=== PATIENT | female | born 1980 | race Caucasian/White ===

== ENCOUNTER 2020-06-06 14:18 | Outpatient (CLI) | payer BC, SELFPAY ==
--- NOTE | ~2020-06-06 | XR_ITS ---
EXAMINATION: XR chest 2V EXAM DATE: 06/06/2020 14:30 INDICATION: R05 - Cough TECHNIQUE: Frontal and lateral projections of the chest obtained and reviewed. Comparison is made to prior examination from 07/13/2018. FINDINGS: The lungs are clear. There are no pleural effusions. The cardiomediastinal silhouette is within normal limits. There is no pneumothorax suspected. The bones and soft tissues are unremarkab le. IMPRESSION: No acute cardiopulmonary findings. Reviewed, dictated and finalized at location A. TRAY OPERATOR
== END 2020-06-06 14:19 | disposition home or self-care (01) ==
LOC: ANHIMG 14:22
PROVIDERS: Family Provider Family Medicine Adolescent Medicine; PCP Internal Medicine; Visit Provider Nurse Practitioner
DX: R05 Cough (principal)
CPT/HCPCS: 71046

== ENCOUNTER 2020-06-10 14:44 | Outpatient (CLI) | payer BC, SELFPAY ==
--- NOTE | ~2020-06-10 | MM_ITS ---
EXAMINATION: MM screening [facility] BI w geeta HISTORY: Screening TECHNIQUE: Craniocaudal and mediolateral oblique 3-D tomosynthesis images were obtained and synthetic 2-D images were generated. CAD analysis was submitted and interpreted. COMPARISON: 07/20/2018 BREAST PARENCHYMAL COMPOSITION: There are scattered areas of fibroglandular density. FINDINGS: There is a focal asymmetry medial aspect of the right breast on CC view. The left breast is stable without evidence for malignancy. IMPRESSION: 1. Focal asymmetry medial aspect of the right breast on CC view. 2. Additional mammographic views and possible breast ultrasound are recommended. BI-RADS Category 0: Incomplete: Needs additional imaging evaluation. Reviewed, dictated and finalized at location A. L INSTALLER IMPRESSION: 1. Focal asymmetry medial aspect of the right breast on CC view. 2. Additional mammographic views and possible breast ultrasound are recommended . BI-RADS Category 0: Incomplete: Needs additional imaging evaluation.
== END 2020-06-10 14:45 | disposition home or self-care (01) ==
LOC: ANHIMG 14:47
PROVIDERS: Family Provider Family Medicine Adolescent Medicine; PCP Internal Medicine; Visit Provider Nurse Practitioner
DX: Z12.31 Encounter for screening mammogram for malignant neoplasm of breast (principal); R92.8 Other abnormal and inconclusive findings on diagnostic imaging of breast
CPT/HCPCS: 77063; 77067

== ENCOUNTER → 2020-06-19 09:16 | Outpatient (CLI) | payer BC, SELFPAY ==
--- NOTE | ~2020-06-19 | MMUS_ITS ---
EXAMINATION: MM diagnostic mammo unilat RT, US breast RT limited HISTORY: Right breast asymmetry on screening TECHNIQUE: Additional 3-D tomosynthesis images of the right breast were performed and synthetic 2-D i mages were generated. CAD analysis was submitted and interpreted. High resolution limited right breas t ultrasound was performed. COMPARISON: 06/10/2020, 07/20/2018 FINDINGS: MAMMOGRAPHIC FINDINGS: There is a persistent asymmetry in the middle/posterior third of the central, slightly inner breast 7 cm from the nipple. No suspicious calcification or architectural distortion are identified. ULTRASOUND: There is a 3 mm cyst at the 2:00 location 6 cm from the nipple. A 4 mm x 2 mm oval, circumscribed, pa rallel, hypoechoic mass with posterior acoustic enhancement and no internal vascularity is seen at th e 3:00 location 5 cm from the nipple. IMPRESSION: 1. Probably benign right breast findings. 2. Recommend 6 month follow-up right diagnostic mammogram and ultrasound. BI-RADS category 3, probably benign findings. Reviewed, dictated and finalized at location A. GER CCU IMPRESSION: 1. Probably benign right breast findings. 2. Recommend 6 month follow-up right diagnostic mammogram and ultrasound. BI-RADS category 3, probably benign findings.
== END ==
PROVIDERS: PCP Internal Medicine; Visit Provider Nurse Practitioner
DX: R92.8 Other abnormal and inconclusive findings on diagnostic imaging of breast (principal)
CPT/HCPCS: 76642; 77065

== ENCOUNTER → 2020-07-05 07:38 | Outpatient (CLI) | payer BC, SELFPAY ==
--- NOTE | ~2020-07-05 | US_ITS ---
US right upper quadrant INDICATION: Elevation of liver enzymes PROCEDURE: Realtime right upper abdominal ultrasound. COMPARISON: Comparison to multiple prior studies sequentially, with oldest reviewed study dated 02/14. FINDINGS: The pancreas is normal without focal mass or pancreatic ductal dilation. Liver echotexture is increased, consistent with fatty infiltration. There is normal directional flow in the portal ve in. The gallbladder is normal without stones, gallbladder wall thickening or pericholecystic fluid. Comm on bile duct measures 3 mm. No sonographic Walter's sign. IMPRESSION: 1: Hepatic steatosis. Reviewed, dictated and finalized at location A. GER PROPERTY IMPRESSION: 1: Hepatic steatosis.
== END ==
PROVIDERS: PCP Internal Medicine; Visit Provider Nurse Practitioner
DX: R74.01 Elevation of levels of liver transaminase levels (principal); K76.0 Fatty (change of) liver, not elsewhere classified
CPT/HCPCS: 76705

== ENCOUNTER → 2021-01-24 07:51 | Outpatient (CLI) | payer BC, SELFPAY ==
--- NOTE | ~2021-01-24 | MMUS_ITS ---
EXAMINATION: MM diagnostic coral RT w geeta, US breast RT limited HISTORY: Six-month follow-up TECHNIQUE: ML, MLO and craniocaudal full field and spot 3-D tomosynthesis images of the right breast were performed and synthetic 2-D images were generated. Rolled medial and lateral lateral craniocauda l views. CAD analysis was submitted and interpreted. High resolution repeat limited right breast ultr asound was performed. COMPARISON: 06/19/2020 diagnostic right mammogram and limited right breast ultrasound 06/10/2020 bilateral digital screening mammogram 07/20/2018 bilateral digital screening BREAST PARENCHYMAL COMPOSITION: There are scattered areas of fibroglandular density. FINDINGS: MAMMOGRAPHIC FINDINGS: No reproducible suspicious mass or architectural distortion is detected. No malignant calcification, skin thickening or retraction. ULTRASOUND: The 3 mm cyst at 2:00 6 cm from the nipple and 4 x 2 mm hypoechoic mass at 3:00 5 cm from the nipple noted on 06/19/2020 Limited right breast ultrasound are no longer evident. IMPRESSION: 1. No mammographic evidence of malignancy 2. Routine mammographic screening is recommended. BI-RADS Category 1: Negative Reviewed, dictated and finalized at location A. IMPRESSION: 1. No mammographic evidence of malignancy 2. Routine mammographic screening is recommended. BI-RADS Category 1: Negative
== END ==
PROVIDERS: PCP Internal Medicine; Visit Provider Nurse Practitioner
DX: R92.8 Other abnormal and inconclusive findings on diagnostic imaging of breast (principal)
CPT/HCPCS: 76642; 77061; 77065; G0279

== ENCOUNTER → 2021-05-14 12:01 | Outpatient (CLI) | payer BC, SELFPAY ==
--- NOTE | ~2021-05-14 | XR_ITS ---
EXAMINATION: XR hip BI wo pelvis, XR lumbar spine 2-3V, XR sacroiliac joints min 3V DATE: 05/14/2021 13:09 INDICATION: Inflammatory polyarthropathy. Rheumatoid arthritis with intermittent joint pain. TECHNIQUE: 1. Supine AP, lateral and coned-down lateral lumbosacral views of the lumbar spine were obtained. 2. AP and left and right oblique views of the sacroiliac joints were obtained. 3. Anteroposterior and frog-leg lateral views of the right hip and anteroposterior and frog-leg later al views of the left hip were obtained. COMPARISON: None. FINDINGS: Lumbar spine: Alignment is normal. Vertebral body heights are normal. Schmorl's node along the superior endplate of L2. T12 limbus vertebra with unfused accessory apophyseal center along the anterosuperior margin of the vertebral body. Mild disc height loss at T10-T11, T11-T12, L3-L4 and L4-L5 and mild to moderate d isc height loss at T12-L1 and L1-L2. Moderate facet osteoarthritis on the right at L5-S1. Otherwise m ild facet osteoarthritis throughout the remainder of the lumbar spine. Pelvis, bilateral hips and sacroiliac joints: Alignment is normal. Minimal to mild bilateral hip and sacroiliac osteoarthritis. No erosions at the sacral iliac joints to suggest an inflammatory sacroiliitis. Couple small os acetabuli along the supe rolateral rim of the right acetabulum. IMPRESSION: 1. Mild to moderate lumbar and lower thoracic spondylosis. 2. Minimal to mild bilateral hip and sacroiliac osteoarthritis. Reviewed, dictated and finalized at location A. ICAL LABORATORY AIDE IMPRESSION: 1. Mild to moderate lumbar and lower thoracic spondylosis. 2. Minimal to mild bilateral hip and sacroiliac osteoarthritis. IMPRESSION: 1. Mild to moderate lumbar and lower thoracic spondylosis. 2. Minimal to mild bilateral hip and sacroiliac osteoarthritis.
--- NOTE | ~2021-05-14 | XR_ITS ---
EXAMINATION: XR hand LT 2V, XR hand RT 2V DATE: 05/14/2021 13:09 INDICATION: Inflammatory polyarthropathy. Rheumatoid arthritis with intermittent joint pain. TECHNIQUE: 1. Posteroanterior and lateral views of the left hand were obtained. 2. Posteroanterior and lateral views of the right hand were obtained. COMPARISON: Left hand radiographs dated 11/20/2015 FINDINGS: 2 mm ulnar minus variance at the left wrist. Otherwise normal alignment at the bilateral hands. No fr actures. Moderate osteoarthritis at the bilateral first carpometacarpal joints with associated hypert rophic changes slightly more prominent on the right than the left. Additional mild osteoarthritis at the bilateral first interphalangeal joints and minimally at a few of the distal interphalangeal joint s. No uniform joint space narrowing, periarticular osteopenia or erosions to suggest an inflammatory arthritis such as rheumatoid. There appears to be mild periarticular soft tissue swelling at the righ t third metacarpophalangeal joint. IMPRESSION: 1. Interval progression of moderate polyarticular osteoarthritis at the bilateral first carpometacarp al joints with minimal osteoarthritis at a few of the distal interphalangeal joints. 2. Mild periarticular soft tissue swelling at the left third metacarpophalangeal joint which could be seen with rheumatoid arthritis although there are no osseous findings such as uniform joint space na rrowing, erosions or periarticular osteopenia to more specifically suggest this. Reviewed, dictated and finalized at location A. CTOR OF FUNDRAISING IMPRESSION: 1. Interval progression of moderate polyarticular osteoarthritis at the bilater al first carpometacarpal joints with minimal osteoarthritis at a few of the dis sally interphalangeal joints. 2. Mild periarticular soft tissue swelling at the left third metacarpophalangea l joint which could be seen with rheumatoid arthritis although there are no oss eous findings such as uniform joint space narrowing, erosions or periarticular osteopenia to more specifically suggest this.
== END ==
PROVIDERS: Visit Provider Physician Assistant Medical
DX: M06.4 Inflammatory polyarthropathy (principal); Z51.81 Encounter for therapeutic drug level monitoring; Z79.899 Other long term (current) drug therapy; M47.815 Spondylosis without myelopathy or radiculopathy, thoracolumbar region; M16.0 Bilateral primary osteoarthritis of hip; M79.89 Other specified soft tissue disorders; M18.0 Bilateral primary osteoarthritis of first carpometacarpal joints; M18.12 Unilateral primary osteoarthritis of first carpometacarpal joint, left hand
CPT/HCPCS: 72100; 72202; 73120; 73521

== ENCOUNTER 2022-07-24 17:22 | Emergency (ER) | payer BC, SELFPAY ==
[2022-07-24 17:40] VITALS: BP 111/80; PULSE 73; RESP 18; TEMP 36.6; O2SAT 100
--- NOTE | 2022-07-24 17:59 | ED.SKABFB ---
HPI - Skin/Abscess/Foreign Bdy General Chief complaint: Skin/Abscess/Foreign Body Stated complaint: rash Time Seen by Provider: 07/24/22 18:00 Source: patient, RN notes reviewed and old records reviewed Mode of arrival: ambulatory Limitations: no limitations History of Present Illness HPI narrative: 42-year-old female presents to the [facility] with complaints of a rash that developed 2 days ago. Has a rash to the right hip, left buttock, right breast Related Data Allergies Allergy/AdvReac Type Severity Reaction Status Date / Time azithromycin AdvReac Intermediate Vomiting Verified 07/24/22 18:04 Review of Systems Review of Systems: All systems reviewed & are unremarkable except as noted in HPI and below Constitutional: Constitutional: Reports no additional constitutional complaints Eyes: Eyes: Reports no additional eye complaints ENT: Reports system reviewed and no additional complaints, except as documented Cardiovascular: Cardiovascular: Reports no additional cardiovascular complaints, Denies chest pain and Denies dyspnea Respiratory: Respiratory: Reports no additional respiratory complaints, Denies chest congestion, Denies cough and Denies dyspnea Gastrointestinal: Gastrointestinal: Reports no additional gastrointestinal complaints, Denies abdominal pain, Denies nausea and Denies vomiting Musculoskeletal: Musculoskeletal: Reports no additional musculoskeletal complaints Integumentary/Breasts: Skin/Breast: Reports as per HPI Neurologic: Reports system reviewed and no additional complaints, except as documented Psychiatric: Psychiatric: Reports no additional psychiatric complaints Allergic/Immunologic: Allergic/Immunologic: Reports no additional allergic/immunologic complaints PMFSH Past Medical History Medical History Abnormal mammogram Anxiety Hypercholesterolemia Hyperglycemia Obesity (BMI 35.0-39.9 without comorbidity) Pre-op evaluation Rheumatoid arthritis Rheumatoid arthritis of unspecified site with involvement of other organs and systems Right foot pain Screening for breast cancer Transaminitis Surgical History Surgical History Delivery by section History of ankle surgery History of elbow surgery History of weight loss surgery (~09/23/20) Gastric sleeve Family History Family History Father Family history of chronic obstructive pulmonary disease Mother Family history of malignant neoplasm of breast in first degree relative, Onset Age: 48 Son , in sleep 1 week after 6th birthday, cause unknown. No problems noted. Other Diabetes mellitus Family history of thyroid disease Social History Social History Smoking status: Never smoker Alcohol intake: never Lack of Transportation: No Lack of Food: Never True Current Housing: I Have Housing Concerned About Future Housing: No Difficulty Paying Gas/Electric Bills: No Difficulty Paying for Meds: No Currently Unemployed: No Education: Bachelor's Degree Difficulty w/ Childcare or Family Care: No Comments At the time of my signature, I reviewed and agree with the nursing past medical, surgical, social, and family history. There is no relevant family history pertinent to the patient complaint. Exam Const: General: cooperative, healthy appearing, comfortable, no acute distress, well developed, alert and well nourished Nutritional Appearance: well nourished and obese Orientation/consciousness: patient oriented x3 Limitations: no limitations HENMT: Head: normal to inspection Ears: hearing grossly normal bilaterally and external ears normal Face/Nose/Sinus: Normal external nose present, Normal nares present, Normal nasal mucous membranes and turbinates present and normal f
== END 2022-07-24 18:20 | disposition home or self-care (01) ==
PROVIDERS: Emergency Provider Nurse Practitioner; PCP Internal Medicine
DX: L03.90 Cellulitis, unspecified (principal); R21 Rash and other nonspecific skin eruption; M06.9 Rheumatoid arthritis, unspecified
CPT/HCPCS: 99213; G0463

== ENCOUNTER 2022-11-03 09:20 | Outpatient (CLI) | payer BC, SELFPAY ==
[2022-11-03 10:14] LABS: Kit Draw Collected
== END 2022-11-03 09:21 | disposition home or self-care (01) ==
LOC: ANHGOSHLAB 09:24
PROVIDERS: PCP Internal Medicine; Visit Provider Clinical Nurse Specialist
DX: M06.9 Rheumatoid arthritis, unspecified (principal); E78.00 Pure hypercholesterolemia, unspecified; E55.9 Vitamin D deficiency, unspecified; R74.01 Elevation of levels of liver transaminase levels
CPT/HCPCS: 36415

== ENCOUNTER → 2023-01-29 11:28 | Outpatient (CLI) | payer BC, SELFPAY ==
--- NOTE | ~2023-01-29 | MM_ITS ---
EXAMINATION: MM screening [facility] BI w geeta HISTORY: Screening mammogram TECHNIQUE: Craniocaudal and mediolateral oblique 3-D tomosynthesis images were obtained and synthetic 2-D images were generated. CAD analysis was submitted and interpreted. COMPARISON: 01/24/2021 diagnostic right mammogram and limited right breast ultrasound 07/06/2020 diagnostic right mammogram and limited right breast ultrasound 06/10/2020 bilateral screening mammogram 07/20/2018 bilateral screening mammogram BREAST PARENCHYMAL COMPOSITION: There are scattered areas of fibroglandular density. FINDINGS: Right breast: An asymmetric approximately 5 x 15 mm opacity is noted posteriorly in the lower inner q uadrant of the right breast. Diagnostic right mammogram and right breast ultrasound examination are r ecommended. No other significant change of the right breast is detected compared to 07/20/2018. Left breast: No suspicious mass or architectural distortion, malignant calcification, skin thickening or retractio n or significant new or developing density is detected in the left breast since 07/20/2018. IMPRESSION: 1. Asymmetric opacity in posterior lower inner right breast 2. Diagnostic right mammogram and right breast ultrasound examination are recommended BI-RADS Category 0: Incomplete: Needs additional imaging evaluation. Reviewed, dictated and finalized at location A. IMPRESSION: 1. Asymmetric opacity in posterior lower inner right breast 2. Diagnostic right mammogram and right breast ultrasound examination are recom mended BI-RADS Category 0: Incomplete: Needs additional imaging evaluation.
== END ==
PROVIDERS: PCP Obstetrics & Gynecology; Visit Provider Obstetrics & Gynecology
DX: Z12.31 Encounter for screening mammogram for malignant neoplasm of breast (principal); R92.8 Other abnormal and inconclusive findings on diagnostic imaging of breast
CPT/HCPCS: 77063; 77067

== ENCOUNTER → 2023-02-19 08:16 | Outpatient (CLI) | payer BC, SELFPAY ==
--- NOTE | ~2023-02-19 | MM_ITS ---
EXAMINATION: MM diagnostic coral RT w geeta HISTORY: Right breast asymmetry on screening mammogram TECHNIQUE: Additional 3-D tomosynthesis images of the right breast were performed and synthetic 2-D i mages were generated. CAD analysis was submitted and interpreted. COMPARISON: 01/29/2023, 01/24/2021, 06/19/2020, 06/10/2020, 07/20/2018 FINDINGS: There is a return to baseline fibroglandular appearance with spot compression of the right breast in the area questioned on screening mammogram. No suspicious mass, calcification, or e commerce architect ural distortion are identified. IMPRESSION: 1. No mammographic evidence of malignancy. 2. Recommend routine screening mammography in one year. BI-RADS Category 2: Benign finding(s). Reviewed, dictated and finalized at location A.
== END ==
PROVIDERS: PCP Obstetrics & Gynecology; Visit Provider Obstetrics & Gynecology
DX: R92.8 Other abnormal and inconclusive findings on diagnostic imaging of breast (principal)
CPT/HCPCS: 77061; 77065; G0279

== ENCOUNTER 2024-02-22 10:31 | Outpatient (CLI) | payer BC, SELFPAY ==
--- NOTE | ~2024-02-22 | MM_ITS ---
EXAMINATION: MM screening coral BI w geeta HISTORY: Screening TECHNIQUE: Craniocaudal and mediolateral oblique 3-D tomosynthesis images were obtained and synthetic 2-D images were generated. CAD analysis was submitted and interpreted. COMPARISON: No prior mammogram is available for comparison at this institution. BREAST PARENCHYMAL COMPOSITION: Not dense: There are scattered areas of fibroglandular density. FINDINGS: There is no evidence of suspicious mass, calcification, or architectural distortion to sugg est malignancy in either breast. There has been no suspicious interval change. IMPRESSION: 1. No mammographic evidence of malignancy. 2. Recommend routine screening mammography in one year. BI-RADS Category 1: Negative Reviewed, dictated and finalized at location B.
== END 2024-02-22 10:32 | disposition home or self-care (01) ==
PROVIDERS: PCP Clinical Nurse Specialist; Visit Provider Obstetrics & Gynecology
DX: Z12.31 Encounter for screening mammogram for malignant neoplasm of breast (principal)
CPT/HCPCS: 77063; 77067

== ENCOUNTER 2024-07-11 10:13 | Outpatient (CLI) | payer BC, SELFPAY ==
--- OUTSIDE RECORDS SUMMARY | 2024-07-11 11:53 | XMS_ITS | Patient Health Summary ---
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 This disclosure is being madepursuant to the Care Everywhere program and may not contain all information available regarding this patient. Last updated 18.[facility] Social History Tobacco Use Types Packs/Day Years Used Date Smoking Tobacco: Never Assessed Sex and Gender Information Value Date Recorded Sex Assigned at Not on file Gender Identity Not on file Sexual Orientation Not on file Procedures * XR LUMBAR SPINE 4VW OR MORE(Performed 01/08/2016) Performed for Pain in joint, multiple sites * XR HAND BILAT 2VW(Performed 01/08/2016) Performed for Pain in joint, multiple sites * XR SI JOINTS 2VW OR LESS(Performed 01/08/2016) Performed for Pain in joint, multiple sites * XR ANKLE BILAT 2VW(Performed 01/08/2016) Performed for Pain in joint, multiple sites * XR WRIST BILAT 2VW(Performed 01/08/2016) Performed for Pain in joint, multiple sites * XR FOOT BILAT 2VW(Performed 01/08/2016) Performed for Pain in joint, multiple sites * XR PELVIS 1 OR 2VW(Performed 01/08/2016) Performed for Pain in joint, multiple sites Results * XR HANDS BILATERAL 2 VIEWS (01/08/2016 10:06 AM CDT) Anatomical Region Laterality Modality Wrist / Hand, Upper Extremity Ra diographic Imaging 01/08/2016 10:1 6 AM CDT Impressions 01/08/2016 10:29 AM CDT 1. 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 2.Trace retrolisthesis of L5 on S1 that does not change with flexion or extension. 3. Minimal L3-L5 degenerative disc disease. 4. Normal hip joint spaces. 5. Mild right first metatarsophalangeal joint osteoarthritis. 6. Lytic lesion at the medial aspect of the left tibial plafond may represent a posttraumatic or subchondral cyst. Narrative 01/08/2016 10:29 AM CDT Examination: 1. Bilateral wrists 2 views 2. Bilateral hands 2 views 3. Lumbar spine minimum 4 views 4. Pelvis one or 2 views 5. Bilateral ankles 2 views 6. Bilateral feet 2 views History: Joint pain Findings: Hands and wrists: 2 views of both hands and 2 views of both wrists are submitted without comparison. The alignment is normal. There is no acute fracture. There are no erosions. 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 A carpal boss is present at the base of the third metacarpal on the right. Lumbar spine: 5 view examination of the lumbar spine is submitted without comparison. There is trace retrolisthesis of L5 on S1 in the neutral position which is unchanged in flexion and extension. There is no compression fracture. There is minimal L3-L5 degenerative disc disease. There is no compression fracture. Pelvis: One view of the pelvis is submitted without comparison. The alignment is normal. There is no fracture. Hip joint spaces are normal. Os acetabuli are present bilaterally. Ankles and feet: 2 view nonweightbearing examinations of both feet and three-view nonweightbearing examinations of both ankles are submitted without comparison. There is no acute fracture or dislocation. The medial hallux sesamoid is bipartite bilaterally. There is mild right first metatarsophalangeal joint osteoarthritis. There are no erosions. A lytic lesion at the medial aspect of the left tibial plafond may represent a posttraumatic or subchondral cyst although the ankle joint space is normal. Procedure Note José Davey MD - 01/08/2016 Examination: 1. Bilateral wrists 2 views 2. Bilateral hands 2 views 3. Lumbar spine minimum 4 views 4. Pelvis one or 2 views 5. Bilateral ankles 2 views 6. Bilateral feet 2 views History: Joint pain Findings: Hands and wrists: 2 views of both hands and 2 views of both wrists are submitted without comparison. The alignment is normal. There is no acute fracture. There are no erosions. 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 A carpal boss is present at the base of the third metacarpal on the right. Lumbar spine: 5 view examination of the lumbar spine is submitted without comparison. There is trace retrolisthesis of L5 on S1 in the neutral position which is unchanged in flexion and extension. There is no compression fracture. There is minimal L3-L5 degenerative disc disease. There is no compression fracture. Pelvis: One view of the pelvis is submitted without comparison. The alignment is normal. There is no fracture. Hip joint spaces are normal. Os acetabuli are present bilaterally. Ankles and feet: 2 view nonweightbearing examinations of both feet and three-view nonweightbearing examinations of both ankles are submitted without comparison. There is no acute fracture or dislocation. The medial hallux sesamoid is bipartite bilaterally. There is mild right first metatarsophalangeal joint osteoarthritis. There are no erosions. A lytic lesion at the medial aspect of the left tibial plafond may represent a posttraumatic or subchondral cyst although the ankle joint space is normal. IMPRESSION 1. 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 2.Trace retrolisthesis of L5 on S1 that does not change with flexion or extension. 3. Minimal L3-L5 degenerative disc disease. 4. Normal hip joint spaces. 5. Mild right first metatarsophalangeal joint osteoarthritis. 6. Lytic lesion at the medial aspect of the left tibial plafond may represent a posttraumatic or subchondral cyst. Pham Mckeon MD DIAGNOSTIC IMAGING O RDERABLES * XR FOOT BILAT 2 VIEWS (01/08/2016 10:06 AM CDT) Anatomical Region Laterality Modality Lower Extremity, Ankle / Foot Ra diographic Imaging 01/08/2016 10:1 6 AM CDT Impressions 01/08/2016 10:29 AM CDT 1. 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 2.Trace retrolisthesis of L5 on S1 that does not change with flexion or extension. 3. Minimal L3-L5 degenerative disc disease. 4. Normal hip joint spaces. 5. Mild right first metatarsophalangeal joint osteoarthritis. 6. Lytic lesion at the medial aspect of the left tibial plafond may represent a posttraumatic or subchondral cyst. Narrative 01/08/2016 10:29 AM CDT Examination: 1. Bilateral wrists 2 views 2. Bilateral hands 2 views 3. Lumbar spine minimum 4 views 4. Pelvis one or 2 views 5. Bilateral ankles 2 views 6. Bilateral feet 2 views History: Joint pain Findings: Hands and wrists: 2 views of both hands and 2 views of both wrists are submitted without comparison. The alignment is normal. There is no acute fracture. There are no erosions. 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 A carpal boss is present at the base of the third metacarpal on the right. Lumbar spine: 5 view examination of the lumbar spine is submitted without comparison. There is trace retrolisthesis of L5 on S1 in the neutral position which is unchanged in flexion and extension. There is no compression fracture. There is minimal L3-L5 degenerative disc disease. There is no compression fracture. Pelvis: One view of the pelvis is submitted without comparison. The alignment is normal. There is no fracture. Hip joint spaces are normal. Os acetabuli are present bilaterally. Ankles and feet: 2 view nonweightbearing examinations of both feet and three-view nonweightbearing examinations of both ankles are submitted without comparison. There is no acute fracture or dislocation. The medial hallux sesamoid is bipartite bilaterally. There is mild right first metatarsophalangeal joint osteoarthritis. There are no erosions. A lytic lesion at the medial aspect of the left tibial plafond may represent a posttraumatic or subchondral cyst although the ankle joint space is normal. Procedure Note José Davey MD - 01/08/2016 Examination: 1. Bilateral wrists 2 views 2. Bilateral hands 2 views 3. Lumbar spine minimum 4 views 4. Pelvis one or 2 views 5. Bilateral ankles 2 views 6. Bilateral feet 2 views History: Joint pain Findings: Hands and wrists: 2 views of both hands and 2 views of both wrists are submitted without comparison. The alignment is normal. There is no acute fracture. There are no erosions. 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 A carpal boss is present at the base of the third metacarpal on the right. Lumbar spine: 5 view examination of the lumbar spine is submitted without comparison. There is trace retrolisthesis of L5 on S1 in the neutral position which is unchanged in flexion and extension. There is no compression fracture. There is minimal L3-L5 degenerative disc disease. There is no compression fracture. Pelvis: One view of the pelvis is submitted without comparison. The alignment is normal. There is no fracture. Hip joint spaces are normal. Os acetabuli are present bilaterally. Ankles and feet: 2 view nonweightbearing examinations of both feet and three-view nonweightbearing examinations of both ankles are submitted without comparison. There is no acute fracture or dislocation. The medial hallux sesamoid is bipartite bilaterally. There is mild right first metatarsophalangeal joint osteoarthritis. There are no erosions. A lytic lesion at the medial aspect of the left tibial plafond may represent a posttraumatic or subchondral cyst although the ankle joint space is normal. IMPRESSION 1. 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 2.Trace retrolisthesis of L5 on S1 that does not change with flexion or extension. 3. Minimal L3-L5 degenerative disc disease. 4. Normal hip joint spaces. 5. Mild right first metatarsophalangeal joint osteoarthritis. 6. Lytic lesion at the medial aspect of the left tibial plafond may represent a posttraumatic or subchondral cyst. Pham Mckeon MD DIAGNOSTIC IMAGING O RDERABLES * XR WRIST BILAT 2 VIEWS (01/08/2016 10:06 AM CDT) Anatomical Region Laterality Modality Wrist / Hand, Upper Extremity Ra diographic Imaging 01/08/2016 10:1 6 AM CDT Impressions 01/08/2016 10:29 AM CDT 1. 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 2.Trace retrolisthesis of L5 on S1 that does not change with flexion or extension. 3. Minimal L3-L5 degenerative disc disease. 4. Normal hip joint spaces. 5. Mild right first metatarsophalangeal joint osteoarthritis. 6. Lytic lesion at the medial aspect of the left tibial plafond may represent a posttraumatic or subchondral cyst. Narrative 01/08/2016 10:29 AM CDT Examination: 1. Bilateral wrists 2 views 2. Bilateral hands 2 views 3. Lumbar spine minimum 4 views 4. Pelvis one or 2 views 5. Bilateral ankles 2 views 6. Bilateral feet 2 views History: Joint pain Findings: Hands and wrists: 2 views of both hands and 2 views of both wrists are submitted without comparison. The alignment is normal. There is no acute fracture. There are no erosions. 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 A carpal boss is present at the base of the third metacarpal on the right. Lumbar spine: 5 view examination of the lumbar spine is submitted without comparison. There is trace retrolisthesis of L5 on S1 in the neutral position which is unchanged in flexion and extension. There is no compression fracture. There is minimal L3-L5 degenerative disc disease. There is no compression fracture. Pelvis: One view of the pelvis is submitted without comparison. The alignment is normal. There is no fracture. Hip joint spaces are normal. Os acetabuli are present bilaterally. Ankles and feet: 2 view nonweightbearing examinations of both feet and three-view nonweightbearing examinations of both ankles are submitted without comparison. There is no acute fracture or dislocation. The medial hallux sesamoid is bipartite bilaterally. There is mild right first metatarsophalangeal joint osteoarthritis. There are no erosions. A lytic lesion at the medial aspect of the left tibial plafond may represent a posttraumatic or subchondral cyst although the ankle joint space is normal. Procedure Note José Davey MD - 01/08/2016 Examination: 1. Bilateral wrists 2 views 2. Bilateral hands 2 views 3. Lumbar spine minimum 4 views 4. Pelvis one or 2 views 5. Bilateral ankles 2 views 6. Bilateral feet 2 views History: Joint pain Findings: Hands and wrists: 2 views of both hands and 2 views of both wrists are submitted without comparison. The alignment is normal. There is no acute fracture. There are no erosions. 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 A carpal boss is present at the base of the third metacarpal on the right. Lumbar spine: 5 view examination of the lumbar spine is submitted without comparison. There is trace retrolisthesis of L5 on S1 in the neutral position which is unchanged in flexion and extension. There is no compression fracture. There is minimal L3-L5 degenerative disc disease. There is no compression fracture. Pelvis: One view of the pelvis is submitted without comparison. The alignment is normal. There is no fracture. Hip joint spaces are normal. Os acetabuli are present bilaterally. Ankles and feet: 2 view nonweightbearing examinations of both feet and three-view nonweightbearing examinations of both ankles are submitted without comparison. There is no acute fracture or dislocation. The medial hallux sesamoid is bipartite bilaterally. There is mild right first metatarsophalangeal joint osteoarthritis. There are no erosions. A lytic lesion at the medial aspect of the left tibial plafond may represent a posttraumatic or subchondral cyst although the ankle joint space is normal. IMPRESSION 1. 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 2.Trace retrolisthesis of L5 on S1 that does not change with flexion or extension. 3. Minimal L3-L5 degenerative disc disease. 4. Normal hip joint spaces. 5. Mild right first metatarsophalangeal joint osteoarthritis. 6. Lytic lesion at the medial aspect of the left tibial plafond may represent a posttraumatic or subchondral cyst. Pham Mckeon MD DIAGNOSTIC IMAGING O RDERABLES * XR ANKLE BILAT 2 VIEWS (01/08/2016 10:06 AM CDT) Anatomical Region Laterality Modality Ankle / Foot, Lower Extremity Ra diographic Imaging 01/08/2016 10:1 6 AM CDT Impressions 01/08/2016 10:29 AM CDT 1. 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 2.Trace retrolisthesis of L5 on S1 that does not change with flexion or extension. 3. Minimal L3-L5 degenerative disc disease. 4. Normal hip joint spaces. 5. Mild right first metatarsophalangeal joint osteoarthritis. 6. Lytic lesion at the medial aspect of the left tibial plafond may represent a posttraumatic or subchondral cyst. Narrative 01/08/2016 10:29 AM CDT Examination: 1. Bilateral wrists 2 views 2. Bilateral hands 2 views 3. Lumbar spine minimum 4 views 4. Pelvis one or 2 views 5. Bilateral ankles 2 views 6. Bilateral feet 2 views History: Joint pain Findings: Hands and wrists: 2 views of both hands and 2 views of both wrists are submitted without comparison. The alignment is normal. There is no acute fracture. There are no erosions. 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 A carpal boss is present at the base of the third metacarpal on the right. Lumbar spine: 5 view examination of the lumbar spine is submitted without comparison. There is trace retrolisthesis of L5 on S1 in the neutral position which is unchanged in flexion and extension. There is no compression fracture. There is minimal L3-L5 degenerative disc disease. There is no compression fracture. Pelvis: One view of the pelvis is submitted without comparison. The alignment is normal. There is no fracture. Hip joint spaces are normal. Os acetabuli are present bilaterally. Ankles and feet: 2 view nonweightbearing examinations of both feet and three-view nonweightbearing examinations of both ankles are submitted without comparison. There is no acute fracture or dislocation. The medial hallux sesamoid is bipartite bilaterally. There is mild right first metatarsophalangeal joint osteoarthritis. There are no erosions. A lytic lesion at the medial aspect of the left tibial plafond may represent a posttraumatic or subchondral cyst although the ankle joint space is normal. Procedure Note José Davey MD - 01/08/2016 Examination: 1. Bilateral wrists 2 views 2. Bilateral hands 2 views 3. Lumbar spine minimum 4 views 4. Pelvis one or 2 views 5. Bilateral ankles 2 views 6. Bilateral feet 2 views History: Joint pain Findings: Hands and wrists: 2 views of both hands and 2 views of both wrists are submitted without comparison. The alignment is normal. There is no acute fracture. There are no erosions. 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 A carpal boss is present at the base of the third metacarpal on the right. Lumbar spine: 5 view examination of the lumbar spine is submitted without comparison. There is trace retrolisthesis of L5 on S1 in the neutral position which is unchanged in flexion and extension. There is no compression fracture. There is minimal L3-L5 degenerative disc disease. There is no compression fracture. Pelvis: One view of the pelvis is submitted without comparison. The alignment is normal. There is no fracture. Hip joint spaces are normal. Os acetabuli are present bilaterally. Ankles and feet: 2 view nonweightbearing examinations of both feet and three-view nonweightbearing examinations of both ankles are submitted without comparison. There is no acute fracture or dislocation. The medial hallux sesamoid is bipartite bilaterally. There is mild right first metatarsophalangeal joint osteoarthritis. There are no erosions. A lytic lesion at the medial aspect of the left tibial plafond may represent a posttraumatic or subchondral cyst although the ankle joint space is normal. IMPRESSION 1. 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 2.Trace retrolisthesis of L5 on S1 that does not change with flexion or extension. 3. Minimal L3-L5 degenerative disc disease. 4. Normal hip joint spaces. 5. Mild right first metatarsophalangeal joint osteoarthritis. 6. Lytic lesion at the medial aspect of the left tibial plafond may represent a posttraumatic or subchondral cyst. Pham Mckeon MD DIAGNOSTIC IMAGING O RDERABLES * XR SACROILIAC JOINTS < 3 VW (01/08/2016 10:06 AM CDT) Anatomical Region Laterality Modality Pelvis, Lower Extremity Radiogra phic Imaging 01/08/2016 10:1 5 AM CDT Narrative 01/08/2016 10:34 AM CDT SACROILIAC JOINTS - THREE VIEW HISTORY: Joint pain. The sacroiliac joints are open and normal. There is no erosive arthropathy. DIAGNOSIS: Normal. Edited by Narda Stock on 01/08/2016 10:29 AM Procedure Note Dany Gibbons MD - 01/08/2016 SACROILIAC JOINTS - THREE VIEW HISTORY: Joint pain. The sacroiliac joints are open and normal. There is no erosive arthropathy. DIAGNOSIS: Normal. Edited by Narda Stock on 01/08/2016 10:29 AM Pham Mckeon MD DIAGNOSTIC IMAGING O RDERABLES * XR PELVIS 1 OR 2 VW (01/08/2016 10:06 AM CDT) Anatomical Region Laterality Modality Pelvis Radiographic Rachna ging 01/08/2016 10:1 6 AM CDT Impressions 01/08/2016 10:29 AM CDT 1. 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 2.Trace retrolisthesis of L5 on S1 that does not change with flexion or extension. 3. Minimal L3-L5 degenerative disc disease. 4. Normal hip joint spaces. 5. Mild right first metatarsophalangeal joint osteoarthritis. 6. Lytic lesion at the medial aspect of the left tibial plafond may represent a posttraumatic or subchondral cyst. Narrative 01/08/2016 10:29 AM CDT Examination: 1. Bilateral wrists 2 views 2. Bilateral hands 2 views 3. Lumbar spine minimum 4 views 4. Pelvis one or 2 views 5. Bilateral ankles 2 views 6. Bilateral feet 2 views History: Joint pain Findings: Hands and wrists: 2 views of both hands and 2 views of both wrists are submitted without comparison. The alignment is normal. There is no acute fracture. There are no erosions. 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 A carpal boss is present at the base of the third metacarpal on the right. Lumbar spine: 5 view examination of the lumbar spine is submitted without comparison. There is trace retrolisthesis of L5 on S1 in the neutral position which is unchanged in flexion and extension. There is no compression fracture. There is minimal L3-L5 degenerative disc disease. There is no compression fracture. Pelvis: One view of the pelvis is submitted without comparison. The alignment is normal. There is no fracture. Hip joint spaces are normal. Os acetabuli are present bilaterally. Ankles and feet: 2 view nonweightbearing examinations of both feet and three-view nonweightbearing examinations of both ankles are submitted without comparison. There is no acute fracture or dislocation. The medial hallux sesamoid is bipartite bilaterally. There is mild right first metatarsophalangeal joint osteoarthritis. There are no erosions. A lytic lesion at the medial aspect of the left tibial plafond may represent a posttraumatic or subchondral cyst although the ankle joint space is normal. Procedure Note José Davey MD - 01/08/2016 Examination: 1. Bilateral wrists 2 views 2. Bilateral hands 2 views 3. Lumbar spine minimum 4 views 4. Pelvis one or 2 views 5. Bilateral ankles 2 views 6. Bilateral feet 2 views History: Joint pain Findings: Hands and wrists: 2 views of both hands and 2 views of both wrists are submitted without comparison. The alignment is normal. There is no acute fracture. There are no erosions. 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 A carpal boss is present at the base of the third metacarpal on the right. Lumbar spine: 5 view examination of the lumbar spine is submitted without comparison. There is trace retrolisthesis of L5 on S1 in the neutral position which is unchanged in flexion and extension. There is no compression fracture. There is minimal L3-L5 degenerative disc disease. There is no compression fracture. Pelvis: One view of the pelvis is submitted without comparison. The alignment is normal. There is no fracture. Hip joint spaces are normal. Os acetabuli are present bilaterally. Ankles and feet: 2 view nonweightbearing examinations of both feet and three-view nonweightbearing examinations of both ankles are submitted without comparison. There is no acute fracture or dislocation. The medial hallux sesamoid is bipartite bilaterally. There is mild right first metatarsophalangeal joint osteoarthritis. There are no erosions. A lytic lesion at the medial aspect of the left tibial plafond may represent a posttraumatic or subchondral cyst although the ankle joint space is normal. IMPRESSION 1. 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 2.Trace retrolisthesis of L5 on S1 that does not change with flexion or extension. 3. Minimal L3-L5 degenerative disc disease. 4. Normal hip joint spaces. 5. Mild right first metatarsophalangeal joint osteoarthritis. 6. Lytic lesion at the medial aspect of the left tibial plafond may represent a posttraumatic or subchondral cyst. Pham Mckeon MD DIAGNOSTIC IMAGING O RDERABLES * XR LUMBAR SPINE 4+ VW (01/08/2016 10:06 AM CDT) Anatomical Region Laterality Modality Spine Radiographic Rachna ging 01/08/2016 10:1 6 AM CDT Impressions 01/08/2016 10:29 AM CDT 1. 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 2.Trace retrolisthesis of L5 on S1 that does not change with flexion or extension. 3. Minimal L3-L5 degenerative disc disease. 4. Normal hip joint spaces. 5. Mild right first metatarsophalangeal joint osteoarthritis. 6. Lytic lesion at the medial aspect of the left tibial plafond may represent a posttraumatic or subchondral cyst. Narrative 01/08/2016 10:29 AM CDT Examination: 1. Bilateral wrists 2 views 2. Bilateral hands 2 views 3. Lumbar spine minimum 4 views 4. Pelvis one or 2 views 5. Bilateral ankles 2 views 6. Bilateral feet 2 views History: Joint pain Findings: Hands and wrists: 2 views of both hands and 2 views of both wrists are submitted without comparison. The alignment is normal. There is no acute fracture. There are no erosions. 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 A carpal boss is present at the base of the third metacarpal on the right. Lumbar spine: 5 view examination of the lumbar spine is submitted without comparison. There is trace retrolisthesis of L5 on S1 in the neutral position which is unchanged in flexion and extension. There is no compression fracture. There is minimal L3-L5 degenerative disc disease. There is no compression fracture. Pelvis: One view of the pelvis is submitted without comparison. The alignment is normal. There is no fracture. Hip joint spaces are normal. Os acetabuli are present bilaterally. Ankles and feet: 2 view nonweightbearing examinations of both feet and three-view nonweightbearing examinations of both ankles are submitted without comparison. There is no acute fracture or dislocation. The medial hallux sesamoid is bipartite bilaterally. There is mild right first metatarsophalangeal joint osteoarthritis. There are no erosions. A lytic lesion at the medial aspect of the left tibial plafond may represent a posttraumatic or subchondral cyst although the ankle joint space is normal. Procedure Note José Davey MD - 01/08/2016 Examination: 1. Bilateral wrists 2 views 2. Bilateral hands 2 views 3. Lumbar spine minimum 4 views 4. Pelvis one or 2 views 5. Bilateral ankles 2 views 6. Bilateral feet 2 views History: Joint pain Findings: Hands and wrists: 2 views of both hands and 2 views of both wrists are submitted without comparison. The alignment is normal. There is no acute fracture. There are no erosions. 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 A carpal boss is present at the base of the third metacarpal on the right. Lumbar spine: 5 view examination of the lumbar spine is submitted without comparison. There is trace retrolisthesis of L5 on S1 in the neutral position which is unchanged in flexion and extension. There is no compression fracture. There is minimal L3-L5 degenerative disc disease. There is no compression fracture. Pelvis: One view of the pelvis is submitted without comparison. The alignment is normal. There is no fracture. Hip joint spaces are normal. Os acetabuli are present bilaterally. Ankles and feet: 2 view nonweightbearing examinations of both feet and three-view nonweightbearing examinations of both ankles are submitted without comparison. There is no acute fracture or dislocation. The medial hallux sesamoid is bipartite bilaterally. There is mild right first metatarsophalangeal joint osteoarthritis. There are no erosions. A lytic lesion at the medial aspect of the left tibial plafond may represent a posttraumatic or subchondral cyst although the ankle joint space is normal. IMPRESSION 1. 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 2.Trace retrolisthesis of L5 on S1 that does not change with flexion or extension. 3. Minimal L3-L5 degenerative disc disease. 4. Normal hip joint spaces. 5. Mild right first metatarsophalangeal joint osteoarthritis. 6. Lytic lesion at the medial aspect of the left tibial plafond may represent a posttraumatic or subchondral cyst. Pham Mckeon MD DIAGNOSTIC IMAGING O [employer] Care Teams Loft Worker Relationship Specialty Start Date End Date Hebert Worrell DO PCP - General Internal Medicine 01/08/16
--- OUTSIDE RECORDS SUMMARY | 2024-07-11 11:53 | XMS_ITS | Referral Summary ---
Author Organization [facility] Address [address] [address] Care Team Providers Care Founder And President Name Role Phone Hebert Worrell DO Primary Care Provider [phone] Source Comments [facility],non-owned Affiliates and Associated Physician Practices is amultiple site organization consisting of ambulatory clinics and hospital sitesin [place], [place], [place] and [place]. This disclosure is being madepursuant to the Care Everywhere program and may not contain all information available regarding this patient. Last updated 18.[facility] Social History Tobacco Use Types Packs/Day Years Used Date Smoking Tobacco: Never Assessed Sex and Gender Information Value Date Recorded Sex Assigned at Not on file Gender Identity Not on file Sexual Orientation Not on file Plan of Treatment Not on file Care Teams Founder And President Relationship Specialty Start Date End Date Hebert Worrell, DO PCP - General Internal Medicine 01/08/16
--- OUTSIDE RECORDS SUMMARY | 2024-07-11 11:53 | XMS_ITS | Clinical Summary ---
Author Organization [facility] Address [address] [place] [address] Care Team Providers Care Lining Parts Sewer Name Role Phone Hebert Worrell DO Primary Care Provider Source Comments [facility],non-owned Affiliates and Associated Physician Practices is amultiple site organization consisting of ambulatory clinics and hospital sitesin [place], [place], [place] and [place]. This disclosure is being madepursuant to the Care Everywhere program and may not contain all information available regarding this patient. Last updated 18.[facility] Social History Tobacco Use Types Packs/Day Years Used Date Smoking Tobacco: Never Assessed Sex and Gender Information Value Date Recorded Sex Assigned at Not on file Gender Identity Not on file Sexual Orientation Not on file Plan of Treatment Health Maintenance Due Date Last Done Comments COLOGUARD (AGES 45-75) - COL ON CA SCREENING 1978 COLON MONITORING 1978 COLONOSCOPY - COLON CA SCREENING 1978 CT COLONOGRAPHY - COLON CA SCREENING 1978 Colorectal Cancer Screening 1978 FIT - COLON CA SCREENING 1978 FLEX SIG - COLON CA SCREENING 1978 LIPID TESTING 1978 MAMMOGRAM 1978 HIV SCREENING 1993 HEPATITIS C SCREENING 03/21/1996 DTAP/TDAP/TD VACCINES (1 - Tdap) 1997 HEPATITIS B VACCINE (1 of 3 - 19+ 3-dose series) 1997 COVID-19 VACCINE (2023-2 5 season) 2024 INFLUENZA VACCINE (#1) 2024 DEPRESSION SCREENING 05/17/2024 ZOSTER VACCINE (1 of 2) 2028 HIB VACCINE Aged Out No longer eligi ble based on patient's age to complete this topic HPV VACCINE Aged Out No longer eligi ble based on patient's age to complete this topic MENINGOCOCCAL (Group B) VACCINE Aged Out No longer eligible based on patient's age to complete this topic MENINGOCOCCAL VACCINE Aged Out No tavon rachel eligible based on patient's age to complete this topic PNEUMOCOCCAL VACCINE Aged Out No long er eligible based on patient's age to complete this topic Care Teams Lining Parts Sewer Relationship Specialty Start Date End Date Hebert Worrell DO PCP - General Internal Medicine 01/08/16
--- OUTSIDE RECORDS SUMMARY | 2024-07-11 11:53 | XMS_ITS | Encounter Summary ---
Author Organization [facility] Address [address] [place] [address] Care Team Providers Care Heat And Frost Insulator Helper Name Role Phone Hebert Worrell DO Primary Care Provider Encounter Details Date Type Department Care Team (Late st Contact Info) Description 09/11/2020 Abstract 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
--- OUTSIDE RECORDS SUMMARY | 2024-07-11 11:53 | XMS_ITS | Clinical Summary ---
Author Organization [facility] Address [address] [place] [address] Phone Care Team Providers Care Commissioning Engineer Name Role Phone CanHebert hawkins [place] MEJÍA Primary Care Provider Allergies No known active allergies Medications desvenlafaxine SR 24 hour (PRISTIQ) 50 mg Oral Tb24 Take 1 Tab by mouth daily with breakfast. 90 Tab 1 01/24/2013 Active HYDROcodone-acet aminophen (HYCET) 7.5-325 mg/15 mL SolutionIndicati ons:Preop testing Take 15 mL by mouth every 6 hours as needed for severe pain. Max Daily Amount: 60 mL 300 mL 09/24/2020 1:45 PM CDT 09/23/2020 Active ondansetron (Zofran ODT) 4 mg Tablet, Rapid DissolveIndicati ons:nausea Place 1 Tablet (4 mg) under tongue every 6 hours as needed for Nausea/Vomi ting 28 Tablet 09/24/2020 1:45 PM CDT 09/23/2020 Active Active Problems Problem Noted Date Diagnosed Date Post-operative nausea and vomiting 09/24/2020 Post-op pain 09/24/2020 General medical exam 09/23/2020 Elevated liver enzymes 04/20/2018 Bradycardia 09/05/2012 Overview (09/05/2012): During surgery. Evaluated by Dr. Headley. Depression 06/02/2012 C Section 06/0406/05/2009 MIL, GBS-, A- (short long bones ?downs) 06/03/19 10 Immunizations Immunization Administration Dates Next Due Influenza A (H1N1) Vaccine IM 02/27/2009 Influenza Seasonal Unspecifi ed Formulation IM 02/21/2020,02/15/2012,01/30/2009 Tdap Vaccine > 7 Yo IM VFC 06/07/2009 Family History Medical History Relation Name Comments Healthy Father Spont Ab Maternal Grandfather Breast Cancer Mother Other Mother bipolar Cancer Paternal Grandfather Other Paternal Grandfather Other Paternal Grandmother Healthy Sister SIDS Son 1 sudden unexplai adrienne in childhood. Had a virus and in his sleep during the night at age six. Healthy Son 2 Relation Name Status Comments Father Alive Maternal Grandfather Alive Maternal Grandmother Alive Mother Alive Paternal Grandfather Paternal Grandmother Sister Alive Son 1 Son 2 Alive Social History Tobacco Use Types Packs/Day Years Used Date Smoking Tobacco: Never Smokeless Tobacco: Never Alcohol Use Standard Drinks/Week Comments No 0 (1 standard drink = 0.6 oz pur e alcohol) Comments No Sex and Gender Information Value Date Recorded Sex Assigned at Not on file Legal Sex Female 3:01 AM HIP HOP ARTIST Gender Identity Not on file Sexual Orientation Not on file Occupation Industry Job Start Date Job End Date Not on file Not on file Not on file Not on file Last Filed Vital Signs Vital Sign Reading Time Taken Comments Blood Pressure 126/77 09/24/2020 12:30 PM CDT Pulse 60 09/24/2020 12:30 PM CDT Temperature 36.8 C (98.3 F) 09/24/2020 12:30 PM CDT Respiratory Rate 18 09/24/2020 12:30 PM CDT Oxygen Saturation 97% 09/24/2020 12:30 PM CDT Inhaled Oxygen Concentration - - Weight 97.6 kg (215 lb 3.2 oz) 09/24/2020 5:00 A M CDT Height 157.5 cm (5' 2 ) 09/23/2020 2:59 PM CDT Body Mass Index 39.36 09/23/2020 2:59 PM CDT Plan of Treatment Health Maintenance Due Date Last Done Comments HEPATITIS B VACCINES (1 of 3 - 19+ 3-dose series) 1997 CERVICAL CANCER SCREENING 06/17/2014 06/17/2011 BREAST CANCER SCREENING 2018 DTAP/TDAP/TD VACCINES (2 - T d or Tdap) 06/07/2019 06/07/2009 COLORECTAL SCREENING 2023 Colorectal Cancer Screening 2023 FIT-DNA Q 3 years 2023 FIT/FOBT Q 1 year 2023 Flex Sig/CT Colonography Q 5 years 2023 INFLUENZA VACCINE (#1) 2023 0, 02/15/2012, 01/30/2009 HPV VACCINES Aged Out No longer eligi ble based on patient's age to complete this topic Medical Devices Implanted Type Area Screen Operator Device Identifier Shelf Expiration Date Model / Serial / Lot Seamguard Endogia 60 [id number] - [id number] Implanted:Qty : 2 on 09/23/2020 by Lalo Huerta MD at [facility] Biological N/A: Stomach [employer] 04/03/2023 [id number] / / [id number] Seamguard Endogia 60 [id number] [id number] - [id number] Implanted:Qty : 2 on 09/23/2020 by Lalo Huerta MD at [facility] N/A: Stomach [employer] 10/16/2022 [id number] / / [id number] Description:implant #2- LOT# [id number] EXP. 03/18/23 Insurance [facility] [employer] Advance Directives For more information, please contact: [phone] * Full Code (Latest Code Status on File) Date Activated Date Inactivated Comments 09/23/2020 9:27 AM 09/24/2020 3:53 PM * Full Code Date Activated Date Inactivated Comments 06/04/2009 9:06 PM 06/08/2009 1:00 PM * Full Code Date Activated Date Inactivated Comments 06/03/2009 3:33 PM 06/04/2009 9:06 PM * Full Code Date Activated Date Inactivated Comments 02/17/2009 12:05 PM 02/17/2009 7:34 PM Care Teams Commissioning Engineer Relationship Specialty Start Date End Date Hebert Worrell DO [address] [phone] PCP - General Internal Medicine 05/08/19
--- OUTSIDE RECORDS SUMMARY | 2024-07-11 11:53 | XMS_ITS | Encounter Summary ---
Author Organization [facility] Address 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
--- OUTSIDE RECORDS SUMMARY | 2024-07-11 11:54 | XMS_ITS | Clinical Summary ---
Author Organization [address] Address [address] [place] [address] Phone Care Team Providers Care In Processing Instructor Name Role Phone Hebert Worrell DO Primary Care Provider [phone] Pedro SMITH MD, Asa Roque Unavailable Rd Thomas MD Unavailable [phone] Rizwan Mandujano DPM, Gabriel Unavailable Allergies No known active allergies Medications desvenlafaxine ER (PRISTIQ) 50 mg 24 hr tablet take 1 tablet by oral route every day 0 0 01/03/2016 Active meloxicam (MOBIC) 15 mg tablet Take 1 tablet (15 mg total) by mouth daily 30 tablet 2 03/16/2023 Active upadacitinib (Rinvoq) 15 mg tablet extended release 24 hrIndications:Rh eumatoid Arthritis Take 15 mg by mouth daily 30 tablet 2 03/19/2023 Active Active Problems Problem Noted Date Diagnosed Date Lymphadenopathy of head and neck 07/14/2018 Assessment & Plan (07/14/2018 4:56 PM CLOCK AND WATCH HANDS MOUNTER): Present for the last several weeks with recent symptoms of epistaxis, ear fullness, dry cough, and malaise. Will check infectious serologies as below; pt recently back from vacation to [place]. Also son had influenza A recently; however we are unable to do flu swab in-house at this time. Acute bilateral low back pain with left-sided sc iatica 06/03/2018 Assessment & Plan (08/16/2018 10:07 AM CDT): Better with home exercises. To PT if worse Assessment & Plan (07/14/2018 4:54 PM CLOCK AND WATCH HANDS MOUNTER): Better with home exercises. To PT if worse Assessment & Plan (06/03/2018 5:43 PM CLOCK AND WATCH HANDS MOUNTER): Having persistent low back pain radiating to L thigh and knee for the past 6 weeks. No injury. Suspect sciatica though also tender to SI jts so could have some sacroiliitis as well. Will refer to PT. Demonstrated a few stretches to start with until she can get in with PT. High risk medications (not anticoagulants) long- term use 08/20/2017 Overview (08/16/2018): Neg quantiferon 2/19 Normal tpmt 4/18 Assessment & Plan (03/16/2023 11:47 AM CDT): Neg quantiferon 2/19 Normal tpmt 4/18 Monitor routine labs Advised to get shingrix then wait 2 weeks before starting Rinvoq Assessment & Plan (06/09/2021 10:11 AM CLOCK AND WATCH HANDS MOUNTER): Neg quantiferon 2/19 Normal tpmt 4/18 Monitor routine labs Assessment & Plan (05/06/2021 12:56 PM CLOCK AND WATCH HANDS MOUNTER): Neg quantiferon 2/19 Normal tpmt 4/18 Recheck labs today, not currently on meds Assessment & Plan (02/21/2019 10:05 AM CDT): Neg quantiferon 2/19 Normal tpmt 4/18 Assessment & Plan (11/22/2018 9:50 AM CDT): Neg quantiferon 2/19 Normal tpmt 4/18 Assessment & Plan (08/16/2018 12:24 PM CDT): Neg quantiferon 2/19 Normal tpmt 4/18 Assessment & Plan (07/14/2018 1:40 PM CLOCK AND WATCH HANDS MOUNTER): Neg quantiferon 8/17, recheck today Normal tpmt 09/01 Assessment & Plan (06/03/2018 5:44 PM CLOCK AND WATCH HANDS MOUNTER): Neg quantiferon 8/17, recheck today Normal tpmt 09/01 Assessment & Plan (10/04/2017 11:45 AM CDT): Neg quantiferon 8/ Normal tpmt 09/01 Assessment & Plan (08/20/2017 4:55 PM CDT): Neg quantiferon 8/17 Elevated liver enzymes 08/20/2017 Overview (08/20/2017): Neg hepatitis and autoimmune markers in the past. Per pt had a normal liver u/s Assessment & Plan (08/16/2018 12:24 PM CDT): Mild persistent elevations. Higher at last visit which could have been due to viral illness also. Neg autoimmune markers and hepatitis panel. Per hepatology diagnosed with mild fatty liver. Will recheck labs today. Assessment & Plan (06/03/2018 5:44 PM CLOCK AND WATCH HANDS MOUNTER): Mild persistent elevations. Neg autoimmune markers and hepatitis panel. Per hepatology diagnosed with mild fatty liver. Diet, exercise discussed. Recommend weight watchers. Assessment & Plan (10/04/2017 11:45 AM CDT): Present for several years, prior to going on Humira. Neg hepatitis and autoimmune markers in the past. Per pt had a normal liver u/s. Was referred to liver specialist for eval. Assessment & Plan (08/20/2017 4:55 PM CDT): Present for several years, prior to going on Humira. Neg hepatitis and autoimmune markers in the past. Per pt had a normal liver u/s. May refer to hepatology after I see labs today. Undifferentiated inflammatory arthritis (CMS/HCC ) 01/12/2017 Overview (03/16/2023): Hx uveitis. U/s with moderate synovitis from 8/16. Neg serologies in 2016 Neg HLA-B27 in 2016 Was Humira, stopped in 2019. Quant gold negative 12/31. Normal tpmt Started azathioprine in 09/01 but had intolerable nausea No mtx, leflunomide due to elevated liver enzymes, saw liver specialist and dx fatty liver AVISE 05/06: weak positive KIKI by YRN and histone, equivocal RF R hand u/s 05/19/21: 1) Grade 1 power Doppler in the radial/scaphoid joint. 2) Grade 1 effusion in the 3rd and 5th MCP joints. 3) Marked synovial thickening in the 2nd and 3rd PIP joints. Mild synovial thickening in the wrist and 3rd and 4th MCP joints. 4) An enlarged median nerve at 0.13 cm2 is identified, new since last US. All findings will have to be correlated clinically. In comparison to previous US of the right hand/wrist from 04/29/17, there is increased synovial thickening in the PIP joints with a decrease in effusions previously seen in several joints. Development of median nerve enlargement is also now identified. xrays 05/06: hips/pelvis/lumbar spine/SI: mild to moderate lumbar and thoracic spondylosis. Minimal to mild bilat hip and SI OA. No erosions to SI jts. Hands: moderate OA CMCs and minimal DIP OA. Mild soft tissue swelling at 3rd mcp. No erosions. Assessment & Plan (03/16/2023 12:04 PM CDT): cdai = 41 High disease activity today. Last seen in 06/07 and was only using NSAIDs at that time with decent relief. 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 She has synovitis and tenderness throughout both hands today. Hx uveitis. U/s with moderate synovitis from 12/30. Neg serologies in 2016 Neg HLA-B27 in 2016 Was on Humira, stopped in 2018. Quant gold negative 12/31. Normal tpmt Started azathioprine in 09/01 but had intolerable nausea No mtx, leflunomide due to elevated liver enzymes, saw liver specialist and dx fatty liver. R hand u/s 05/19/21: 1) Grade 1 power Doppler in the radial/scaphoid joint. 2) Grade 1 effusion in the 3rd and 5th MCP joints. 3) Marked synovial thickening in the 2nd and 3rd PIP joints. Mild synovial thickening in the wrist and 3rd and 4th MCP joints. 4) An enlarged median nerve at 0.13 cm2 is identified, new since last US. All findings will have to be correlated clinically. In comparison to previous US of the right hand/wrist from 04/29/17, there is increased synovial thickening in the PIP joints with a decrease in effusions previously seen in several joints. Development of median nerve enlargement is also now identified. xrays 05/06: hips/pelvis/lumbar spine/SI: mild to moderate lumbar and thoracic spondylosis. Minimal to mild bilat hip and SI OA. No erosions to SI jts. Hands: moderate OA CMCs and minimal DIP OA. Mild soft tissue swelling at 3rd mcp. No erosions. AVISE 05/06: weak positives KIKI by YRN only, +histone ab, equivocal RF Will get updated xrays, ultrasound, and labs today. Refill meloxicam. She is wary of going back on previous DMARDs (Humira/ssz) as she feels they contributed to weight gain. Her mom has had a good response to Rinvoq for her RA so I suggest we try this for her also. 2 week sample was given, advised to get Shingrix before starting. Will check benefits for Rinvoq. F/u 4-[address] Vasquez. Assessment & Plan (06/09/2021 10:11 AM CLOCK AND WATCH HANDS MOUNTER): cdai = 19 Last seen in 2019 and was on Humira, ssz at that time. Since then she has been off meds and had weight loss surgery, managing ok. However, recently is having significant bilat hip pain and wanted to be re-evaluated. Is using ibuprofen several times daily. Hx uveitis. U/s with moderate synovitis from 12/30. Neg serologies in 2016 Neg HLA-B27 in 2016 Was on Humira, stopped in 2018. Quant gold negative 12/31. Normal tpmt Started azathioprine in 09/01 but had intolerable nausea No mtx, leflunomide due to elevated liver enzymes, saw liver specialist and dx fatty liver. R hand u/s 05/19/21: 1) Grade 1 power Doppler in the radial/scaphoid joint. 2) Grade 1 effusion in the 3rd and 5th MCP joints. 3) Marked synovial thickening in the 2nd and 3rd PIP joints. Mild synovial thickening in the wrist and 3rd and 4th MCP joints. 4) An enlarged median nerve at 0.13 cm2 is identified, new since last US. All findings will have to be correlated clinically. In comparison to previous US of the right hand/wrist from 04/29/17, there is increased synovial thickening in the PIP joints with a decrease in effusions previously seen in several joints. Development of median nerve enlargement is also now identified. AVISE: weak positives KIKI by YRN only, histone ab Xrays not received, will call for results. Discussed tx options. Pt does get relief with ibuprofen so would be interested in trying meloxicam 15mg for convenience. Will start with this and d/c ibuprofen. Can use tylenol also if needed. If meloxicam not adequately controlling her disease we can try hcq or other DMARDs. F/u 1 month. Labs next Assessment & Plan (05/06/2021 12:55 PM CLOCK AND WATCH HANDS MOUNTER): cdai = 20 Last seen in 2018 and was on Humira, ssz at that time. Since then she has been off meds and had weight loss surgery, managing ok. However, recently is having significant bilat hip pain and wanted to be re-evaluated. Is using ibuprofen several times daily. Hx uveitis. U/s with moderate synovitis from 12/30. Neg serologies in 2016 Neg HLA-B27 in 2016 Was on Humira, stopped in 2018. Quant gold negative 12/31. Normal tpmt Started azathioprine in 09/01 but had intolerable nausea No mtx, leflunomide due to elevated liver enzymes, saw liver specialist and dx fatty liver. Will repeat labs and xrays, will also get R hand u/s to evaluate for synovitis or signs of progressive disease. Discuss treatment options next. Seen with Dr. Vasquez. F/u 1 month Assessment & Plan (02/21/2019 10:25 AM CDT): Doing well on humira and ssz 1gm BID. Had recent plantar fasciitis but better since changing shoes. Tried azathioprine in the past and had persistent nausea. Unable to take mtx or leflunomide due to elevated liver enzymes. Normal tpmt. Saw liver specialist who diagnosed fatty liver. Could increase ssz dose if worse. For now will keep meds the same. Had flu shot yesterday. Repeat labs today. F/u 3 months Assessment & Plan (11/22/2018 5:32 PM CDT): Doing well on humira and ssz 1gm BID. Had recent plantar fasciitis but better since changing shoes. Tried azathioprine in the past and had persistent nausea. Unable to take mtx or leflunomide due to elevated liver enzymes. Normal tpmt. Saw liver specialist who diagnosed fatty liver. Having some intermittent paresthesias in hands. Can try wrist splints at night. If not improving may need ncts. Repeat labs today. F/u 3 months Assessment & Plan (08/16/2018 12:23 PM CDT): Swelling in hands today and attributes it to eating [place] food last night, but pt reports that she has been better since resuming humira and increasing ssz to 1gm BID. Tried azathioprine in the past and had persistent nausea. Unable to take mtx or leflunomide due to elevated liver enzymes. Normal tpmt. Saw liver specialist who diagnosed fatty liver. She is trying to lose weight. Repeat labs today. F/u 3 month Assessment & Plan (07/14/2018 4:54 PM CLOCK AND WATCH HANDS MOUNTER): Moderate disease activity, cdai = 22 On humira (currently holding due to illness) and ssz 500mg BID. Could not get labs last visit but will do today. If ok then increase ssz to 1gm BID. Joint symptoms are slightly better today after starting ssz and taking prednisone taper. Tried azathioprine in the past and had persistent nausea. Unable to take mtx or leflunomide due to elevated liver enzymes. Normal tpmt. Saw liver specialist who diagnosed fatty liver. She is trying to lose weight. Seen with Dr. Vasquez. F/u 1 month Assessment & Plan (06/03/2018 5:42 PM CLOCK AND WATCH HANDS MOUNTER): High disease activity on Humira monotherapy. Tried azathioprine in the past and had persistent nausea. Unable to take mtx or leflunomide due to elevated liver enzymes. Normal tpmt. Saw liver specialist who diagnosed fatty liver. She is trying to change diet but is having trouble losing weight. Encouraged weight watchers. Will try adding ssz 500mg BID to help control joint inflammation and discsussed possible side effects and lab monitoring. If still no better we may change biologics. We prefer humira due to its benefits for uveitis, though this has been in remission for over a year and eye doctor apparently was ok with us changing meds if needed, per the patient. Due to burden of disease will send in oral prednisone, pt prefers this over IM triamcinolone. Start ssz when back from vacation. F/u 1 month. Labs today. Assessment & Plan (10/04/2017 3:08 PM CDT): cdai = 21 Last visit started azathioprine 50mg daily.She had persistent nausea on azathioprine and stopped it, then tried again for a week and still had nausea. Now off again. Normal tpmt. On humira. Will recheck labs today. Patient defers prednisone taper or steroid shot as she gains weight while on steroids. she is unable to take MTX or ARAVA due to elevated LFTS. She has an appt on October 19 with liver specialist. Will discuss with Dr. Vasquez if we should try a different oral dmard to go with Humira after she sees the liver specialist. F/u 1 month Assessment & Plan (08/20/2017 4:52 PM CDT): Patient disease activity is moderate. She did not start azathioprine yet because she was concerned with side effects and taking more meds. Discussed the purpose of adding azathioprine and reviewed possible side effects. Pt willing to start it. Begin 50mg daily. Patient defers prednisone taper or steroid shot today as she gain weight while on steroids. she is unable to take MTX or ARAVA due to elevated LFTS. If no improvement after being on a therapeutic dose of AZA can consider changing her biologic to simponi. Will repeat LFTs today. Discussed will likely have her see liver specialist for eval. Will check TPMT with labs today also. Recheck cbc in 2 weeks. f/u 1 month Assessment & Plan (05/21/2017 4:03 PM CLOCK AND WATCH HANDS MOUNTER): Patient disease activity is high. Patient defers prednisone taper or steroid shot today as she gain weight while on steroids. With worsening disease activity will add azathioprine 50 mg/d. Since she is unable to take MTX or ARAVA due to elevated LFTS. If no improvement after being on a therapeutic dose of AZA can consider changing her biologic to simponi. Will repeat LfTS today as they were elevated last month. Patient forgot to get the repeat LFTs done. She may need to see a liver specialist if these continue to be elevated. Will check TPMT level in one month. Spoke to patient over the phone about imuran. Assessment & Plan (04/20/2017 8:55 AM CLOCK AND WATCH HANDS MOUNTER): Patient disease activity is moderate. Patient is to continue Humira and meloxicam. Will repeat u/s of the hand to evaluate disease activity. Has had elevated LFTs in the past. If worsening disease activity may consider adding MTX. Will check routine labs today. Assessment & Plan (01/12/2017 9:53 AM CDT): Patient disease activity is low. Patient is to continue Humira. Will check routine labs today. senior living use of drug 01/12/2017 Assessment & Plan (05/21/2017 9:10 AM CLOCK AND WATCH HANDS MOUNTER): Will continue to monitor the patient with routine labs. Assessment & Plan (04/20/2017 8:56 AM CLOCK AND WATCH HANDS MOUNTER): Will continue to monitor the patient with routine labs. Assessment & Plan (01/12/2017 9:54 AM CDT): Will continue to monitor the patient with routine labs. Uveitis 01/12/2017 Assessment & Plan (03/16/2023 12:05 PM CDT): No flares in at least 5-6 yrs per pt's recollection. Was on Humira previously. Assessment & Plan (05/06/2021 12:56 PM CLOCK AND WATCH HANDS MOUNTER): No recent flares. Sees eye doctor regularly Assessment & Plan (02/21/2019 10:26 AM CDT): No recent flares. Assessment & Plan (11/22/2018 9:51 AM CDT): No recent flares. Assessment & Plan (08/16/2018 12:24 PM CDT): No recent flares. Assessment & Plan (07/14/2018 4:56 PM CLOCK AND WATCH HANDS MOUNTER): No recent flares. Assessment & Plan (06/03/2018 5:45 PM CLOCK AND WATCH HANDS MOUNTER): Under control on humira. Sees eye doctor Assessment & Plan (10/04/2017 11:44 AM CDT): Under control on humira Assessment & Plan (08/20/2017 4:54 PM CDT): Under control on humira Assessment & Plan (05/21/2017 4:04 PM CLOCK AND WATCH HANDS MOUNTER): On Humira. Continues to have flares. Would consider switching to remicade but patient unable to be take MTX due to elevated LFTS. Can consider simponi. Assessment & Plan (04/20/2017 8:57 AM CLOCK AND WATCH HANDS MOUNTER): Had a flare recently but relates this to being in chlorine. S/p prednisone oral tablets and eye drops. No issues currently. Has had two flares of uveitis since starting Humira. Assessment & Plan (01/12/2017 9:56 AM CDT): Stable. She is watched closely by opthalmology. Immunizations Immunization Administration Dates Next Due Tdap 06/07/2009 Surgical History Surgery Date Site/Laterality Comments OTHER SURGICAL HISTORY Arthroscopy ankle OTHER SURGICAL HISTORY Arthroscopy elbow SECTION c section Family History Medical History Relation Name Comments Diabetes type II Father Diabetes me llitus type 2; Relation Name Status Comments Father Social History Tobacco Use Types Packs/Day Years Used Date Smoking Tobacco: Never Smokeless Tobacco: Never Comments Unknown Sex and Gender Information Value Date Recorded Sex Assigned at Not on file Legal Sex Female 2:57 AM [employer]OCK AND WATCH HANDS MOUNTER Gender Identity Not on file Sexual Orientation Not on file Obstetrics History Last Filed Vital Signs Vital Sign Reading Time Taken Comments Blood Pressure 118/82 03/16/2023 10:34 AM CDT Pulse 71 03/16/2023 10:34 AM CDT Temperature 36.5 C (97.7 F) 06/09/2021 9:27 AM CLOCK AND WATCH HANDS MOUNTER Respiratory Rate 16 06/09/2021 9:27 AM CLOCK AND WATCH HANDS MOUNTER Oxygen Saturation 99% 03/16/2023 10:34 AM CDT Inhaled Oxygen Concentration - - Weight 92.5 kg (204 lb) 03/16/2023 10:34 AM CDT Height 157.5 cm (5' 2 ) 02/21/2019 9:59 AM CDT Body Mass Index 37.31 02/21/2019 9:59 AM CDT Plan of Treatment Health Maintenance Due Date Last Done Comments Breast Cancer Screening-Mammogram 1978 Cervical Cancer Screening 1978 Colon Cancer Screening-Colonoscopy 1978 Depression Screening 1978 Hepatitis B Screening 1996 Regular Well Visit/Exam 18-64 1996 DTaP/Tdap/Td Vaccine (2 - Td or Tdap) 06/07/2019 06/07/2009 Influenza Vaccine (#1) 2024 0, 03/08/2018, 03/02/2017, Additional history exists Hepatitis C Screening Completed 07/26/2018, 016 HPV Vaccines Aged Out No longer eligi ble based on patient's age to complete this topic Pneumococcal vaccine <65 Aged Out No longer eligible based on patient's age to complete this topic Procedures Procedure Name Priority Date/Time Associated Diagnosis Comments HEPATITIS PANEL, ACUTE Routine 07/26/2018 7:40 AM CDT Elevated liver enzymes Fatigue, unspecified type from Last 3 Months or Most Recently Relevant to Health Maintenance Results * Hepatitis panel, acute (07/26/2018 7:40 AM CDT) Hep A IgM NON-REACT SHERMAN NON-REACT SH[facility]MAN [facility] [place] HepBsAg NON-REACT [facility]MAN NON-REACT [facility] [place] Hep B core IgM NON-REACT [facility]ERMAN NON-REACT [facility]MAN [facility] [place] Hep C Ab NON-REACT SHERMAN NON-REACT SH[facility]MAN [facility] [place] SIGNAL TO CUT-OFF 0.01 <1.00 [facility] [place] Comment: HCV antibody was non-reactive. There is no laboratory evidence of HCV infection. In most cases, no further action is required. However, if recent HCV exposure is suspected, a test for HCV RNA (test code 56322) is suggested. For additional information please refer to http://education.dELiAs/faq/CAE80j3 (This link is being provided for informational/ educational purposes only.) Blood specimen (specimen) 07/26/2018 7:40 AM CDT 07/28/2018 5:29 AM CDT Narrative Resulting Agency Comment Performing Organization Information: Site ID: [facility] Name: Xavier Luciano Address: [address] [place], [place] [address]ner [facility] [place] [address] Director: Abdullahi Schneider D.O., MPH Michelle SANCHEZ LAB MICROBIOLOGY - [facility] AL ORDERABLES Final Result [facility] [place] from Last 3 Months or Most Recently Relevant to Health Maintenance Insurance [facility] Care Teams In Processing Instructor Relationship Specialty Start Date End Date Hebert Worrell DO PCP - General 08/14/16 Asa Vasquez III, MD [address] [place] [address] Rheumatology 04/20/17 Rd Thomas MD [address] [place] [address] Referring Physician Gastroenterology 08/30/17 Daren Astorga Jr., DPM [address] [place] [address] Consulting Physician Podiatry 11/22/18
--- OUTSIDE RECORDS SUMMARY | 2024-07-11 11:54 | XMS_ITS | Encounter Summary ---
Author Organization [facility] Address 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
--- OUTSIDE RECORDS SUMMARY | 2024-07-11 11:54 | XMS_ITS | Encounter Summary ---
Author Organization [facility] Address 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
--- OUTSIDE RECORDS SUMMARY | 2024-07-11 11:54 | XMS_ITS | Encounter Summary ---
Author Organization [facility] Address 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
--- OUTSIDE RECORDS SUMMARY | 2024-07-11 11:54 | XMS_ITS | Referral Summary ---
Author Organization [address] Address [address] [place] [address] Phone Care Team Providers Care Seasonal Greenery Bundler Name Role Phone Hebert Worrell DO Primary Care Provider [phone] Pedro SMITH MD, Asa Roque Unavailable [phone] Thomas MD Unavailable [phone] Rizwan Mandujano DPM, Gabriel Unavailable Allergies No [...] 07/14/2018 Assessment & Plan (07/14/2018 4:56 PM HEAD CONTROL CLERK): Present for the last several weeks with recent symptoms of epistaxis, ear fullness, dry cough, and malaise. Will check infectious serologies as below; pt recently back from vacation to [place]. Also son had influenza A recently; however we are unable to do flu swab in-house at this time. Acute bilateral low back pain with left-sided sc iatica 06/03/2018 Assessment & Plan (08/16/2018 10:07 AM CDT): Better with home exercises. To PT if worse Assessment & Plan (07/14/2018 4:54 PM HEAD CONTROL CLERK): Better with home exercises. To PT if worse Assessment & Plan (06/03/2018 5:43 PM HEAD CONTROL CLERK): Having persistent low back pain radiating to [...] Rinvoq Assessment & Plan (06/09/2021 10:11 AM HEAD CONTROL CLERK): Neg quantiferon 2/19 Normal tpmt 4/18 Monitor routine labs Assessment & Plan (05/06/2021 12:56 PM HEAD CONTROL CLERK): Neg quantiferon 2/19 Normal tpmt 4/18 Recheck labs today, not currently on meds Assessment & Plan (02/21/2019 10:05 AM CDT): Neg quantiferon 2/19 Normal tpmt 4/18 Assessment & Plan (11/22/2018 9:50 AM CDT): Neg quantiferon 2/19 Normal tpmt 4/18 Assessment & Plan (08/16/2018 12:24 PM CDT): Neg quantiferon 2/19 Normal tpmt 4/18 Assessment & Plan (07/14/2018 1:40 PM HEAD CONTROL CLERK): Neg quantiferon 8/17, recheck today Normal tpmt 09/01 Assessment & Plan (06/03/2018 5:44 PM HEAD CONTROL CLERK): Neg quantiferon 8/17, recheck today Normal tpmt [...] today. Assessment & Plan (06/03/2018 5:44 PM HEAD CONTROL CLERK): Mild persistent elevations. 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 She has synovitis and tenderness throughout both [...] Vasquez. Assessment & Plan (06/09/2021 10:11 AM HEAD CONTROL CLERK): cdai = 19 Last seen in 2019 [...] next Assessment & Plan (05/06/2021 12:55 PM HEAD CONTROL CLERK): cdai = 20 Last seen in 2018 [...] hands today and attributes it to eating ukrainian food last night, but pt reports that [...] month Assessment & Plan (07/14/2018 4:54 PM HEAD CONTROL CLERK): Moderate disease activity, cdai = 22 On [...] month Assessment & Plan (06/03/2018 5:42 PM HEAD CONTROL CLERK): High disease activity on Humira monotherapy. Tried [...] month Assessment & Plan (05/21/2017 4:03 PM HEAD CONTROL CLERK): Patient disease activity is high. Patient defers [...] imuran. Assessment & Plan (04/20/2017 8:55 AM HEAD CONTROL CLERK): Patient disease activity is moderate. Patient is [...] continue Humira. Will check routine labs today. group home use of drug 01/12/2017 Assessment & Plan (05/21/2017 9:10 AM HEAD CONTROL CLERK): Will continue to monitor the patient with routine labs. Assessment & Plan (04/20/2017 8:56 AM HEAD CONTROL CLERK): Will continue to monitor the patient with routine labs. Assessment & Plan (01/12/2017 9:54 AM CDT): Will continue to monitor the patient with routine labs. Uveitis 01/12/2017 Assessment & Plan (03/16/2023 12:05 PM CDT): No flares in at least 5-6 yrs per pt's recollection. Was on Humira previously. Assessment & Plan (05/06/2021 12:56 PM HEAD CONTROL CLERK): No recent flares. Sees eye doctor regularly Assessment & Plan (02/21/2019 10:26 AM CDT): No recent flares. Assessment & Plan (11/22/2018 9:51 AM CDT): No recent flares. Assessment & Plan (08/16/2018 12:24 PM CDT): No recent flares. Assessment & Plan (07/14/2018 4:56 PM HEAD CONTROL CLERK): No recent flares. Assessment & Plan (06/03/2018 5:45 PM HEAD CONTROL CLERK): Under control on humira. Sees eye doctor Assessment & Plan (10/04/2017 11:44 AM CDT): Under control on humira Assessment & Plan (08/20/2017 4:54 PM CDT): Under control on humira Assessment & Plan (05/21/2017 4:04 PM HEAD CONTROL CLERK): On Humira. Continues to have flares. Would consider switching to remicade but patient unable to be take MTX due to elevated LFTS. Can consider simponi. Assessment & Plan (04/20/2017 8:57 AM HEAD CONTROL CLERK): Had a flare recently but relates this to being in chlorine. S/p prednisone oral tablets and eye drops. No issues currently. Has had two flares of uveitis since starting Humira. Assessment & Plan (01/12/2017 9:56 AM CDT): Stable. She is watched closely by opthalmology. Immunizations Immunization Administration Dates Next Due Tdap 06/07/2009 Social History Tobacco Use Types Packs/Day Years Used Date Smoking Tobacco: Never Smokeless Tobacco: Never Comments Unknown Sex and Gender Information Value Date Recorded Sex Assigned at Not on file Legal Sex Female 2:57 AM HEAD CONTROL CLERK Gender Identity Not on file Sexual Orientation Not on file Last Filed Vital Signs Vital Sign Reading Time Taken Comments Blood Pressure 118/82 03/16/2023 10:34 AM CDT Pulse 71 03/16/2023 10:34 AM CDT Temperature 36.5 C (97.7 F) 06/09/2021 9:27 AM HEAD CONTROL CLERK Respiratory Rate 16 06/09/2021 9:27 AM HEAD CONTROL CLERK Oxygen Saturation 99% 03/16/2023 10:34 AM CDT Inhaled Oxygen Concentration - - Weight 92.5 kg (204 lb) 03/16/2023 10:34 AM CDT Height 157.5 cm (5' 2 ) 02/21/2019 9:59 AM CDT Body Mass Index 37.31 02/21/2019 9:59 AM CDT Plan of Treatment Not on file Procedures Procedure Name Priority Date/Time Associated Diagnosis [...] a test for HCV RNA (test code 46188) is suggested. For additional information please refer to http://education.[employer]/faq/NEI43h8 (This link is being provided for informational/ educational purposes only.) Blood specimen (specimen) 07/26/2018 7:40 AM CDT 07/28/2018 5:29 AM CDT Narrative Resulting Agency Comment Performing Organization Information: Site ID: [place] Name: [facility] Address: [address] [place] [address] Director: Abdullahi Schneider D.O., MPH Michelle SANCHEZ LAB MICROBIOLOGY - GENER AL ORDERABLES Final Result [facility] from Last 3 Months or Most Recently Relevant to Health Maintenance Insurance [employer] Care Teams Seasonal Greenery Bundler Relationship Specialty Start Date End Date Hebert Worrell DO PCP - General 08/14/16 Asa Vasquez III, MD [address] [place] [address] Rheumatology 04/20/17 Rd Thomas MD [address] [place] [address] Referring Physician Gastroenterology 08/30/17 Daren Astorga Jr., DPM [address] [place] [address] Consulting Physician Podiatry 11/22/18
[2024-07-12 07:34] LABS: Kit Draw Collected
== END 2024-07-11 10:14 | disposition home or self-care (01) ==
LOC: ANHGOSHLAB 10:15
PROVIDERS: PCP Internal Medicine; Visit Provider Clinical Nurse Specialist
DX: E78.00 Pure hypercholesterolemia, unspecified (principal); Z13.228 Encounter for screening for other metabolic disorders; G43.009 Migraine without aura, not intractable, without status migrainosus; E55.9 Vitamin D deficiency, unspecified; R73.9 Hyperglycemia, unspecified
CPT/HCPCS: 36415

== ENCOUNTER 2025-01-24 01:44 | Day surgery (SDC) | payer BC, SELFPAY ==
[2024-10-18 11:17] VITALS: BMI 30.2
--- OUTSIDE RECORDS SUMMARY | 2025-01-24 01:47 | XMS_ITS | Clinical Summary ---
Author Organization [facility] Address [address] [facility] [place] [address] Care Team Providers Care Survey Interviewer Name Role Phone Hebert Worrell DO Primary Care Provider [phone] Source Comments [facility],non-owned Affiliates and Associated Physician Practices is amultiple site organization consisting of ambulatory clinics and hospital sitesin [place], [place], [place] and [place]. This disclosure is being madepursuant to the Care Everywhere program and may not contain all information available regarding this patient. Last updated 18.[facility] Social History Tobacco Use Types Packs/Day Years Used Date Smoking Tobacco: Never Assessed Comments Unknown Sex and Gender Information Value Date Recorded Sex Assigned at Not on file Legal Sex Female 9:28 AM CDT Gender Identity Not on file Sexual Orientation [...] of 3 - 19+ 3-dose series) 1997 DEPRESSION SCREENING 05/17/2024 COVID-19 VACCINE (2023-2 5 season) 2025 INFLUENZA VACCINE (#1) 2025 ZOSTER VACCINE (1 of 2) 2028 HIB VACCINE Aged Out No longer eligi ble based on patient's age to complete this topic HPV VACCINE Aged Out No longer eligi ble based on patient's age to complete this topic MENINGOCOCCAL (Group B) VACC INE SHARED DECISION-MAKING Aged Out No longer eligibl e based on patient's age to complete this topic MENINGOCOCCAL GROUPS A/C/Y/W VACCINE Aged Out No longer eligible b ased on patient's age to complete this topic PNEUMOCOCCAL VACCINE Aged Out No long er eligible based on patient's age to complete this topic Insurance [employer] [facility] Care Teams Survey Interviewer Relationship Specialty Start Date End Date Hebert Worrell DO PCP - General Internal Medicine 01/08/16
--- OUTSIDE RECORDS SUMMARY | 2025-01-24 01:47 | XMS_ITS | Clinical Summary ---
Author Organization [address] Address [address] [place] [address] Phone Care Team Providers Care Tea And Spice Supervisor Name Role Phone Hebert Worrell DO Primary Care Provider [phone] Pedro SMITH MD, Asa Roque Unavailable [phone] Thomas MD Unavailable Rizwan Mandujano DPM, Gabriel Unavailable Allergies No [...] 07/14/2018 Assessment & Plan (07/14/2018 4:56 PM HOT WIRE GLASS TUBE CUTTER): Present for the last several weeks with recent symptoms of epistaxis, ear fullness, dry cough, and malaise. Will check infectious serologies as below; pt recently back from vacation to [place]. Also son had influenza A recently; however we are unable to do flu swab in-house at this time. Acute bilateral low back pain with left-sided sc iatica 06/03/2018 Assessment & Plan (08/16/2018 10:07 AM CDT): Better with home exercises. To PT if worse Assessment & Plan (07/14/2018 4:54 PM HOT WIRE GLASS TUBE CUTTER): Better with home exercises. To PT if worse Assessment & Plan (06/03/2018 5:43 PM HOT WIRE GLASS TUBE CUTTER): Having persistent low back pain radiating to [...] Rinvoq Assessment & Plan (06/09/2021 10:11 AM HOT WIRE GLASS TUBE CUTTER): Neg quantiferon 2/19 Normal tpmt 4/18 Monitor routine labs Assessment & Plan (05/06/2021 12:56 PM HOT WIRE GLASS TUBE CUTTER): Neg quantiferon 2/19 Normal tpmt 4/18 Recheck labs today, not currently on meds Assessment & Plan (02/21/2019 10:05 AM CDT): Neg quantiferon 2/19 Normal tpmt 4/18 Assessment & Plan (11/22/2018 9:50 AM CDT): Neg quantiferon 2/19 Normal tpmt 4/18 Assessment & Plan (08/16/2018 12:24 PM CDT): Neg quantiferon 2/19 Normal tpmt 4/18 Assessment & Plan (07/14/2018 1:40 PM HOT WIRE GLASS TUBE CUTTER): Neg quantiferon 8/17, recheck today Normal tpmt 09/01 Assessment & Plan (06/03/2018 5:44 PM HOT WIRE GLASS TUBE CUTTER): Neg quantiferon 8/17, recheck today Normal tpmt [...] today. Assessment & Plan (06/03/2018 5:44 PM HOT WIRE GLASS TUBE CUTTER): Mild persistent elevations. Neg autoimmune markers and [...] I see labs today. 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 She has synovitis and tenderness throughout both hands today. Hx uveitis. U/s with moderate synovitis from 12/30. Neg serologies in 2015 Neg HLA-B27 in 2016 Was on Humira, [...] Vasquez. Assessment & Plan (06/09/2021 10:11 AM HOT WIRE GLASS TUBE CUTTER): cdai = 19 Last seen in 2019 and was on Humira, ssz at that time. Since then she has been off meds and had weight loss surgery, managing ok. However, recently is having significant bilat hip pain and wanted to be re-evaluated. Is using ibuprofen several times daily. Hx uveitis. U/s with moderate synovitis from 12/30. Neg serologies in 2015 Neg HLA-B27 in 2015 Was on Humira, stopped in 2018. Quant [...] next Assessment & Plan (05/06/2021 12:55 PM HOT WIRE GLASS TUBE CUTTER): cdai = 20 Last seen in 2018 [...] hands today and attributes it to eating swiss food last night, but pt reports that [...] month Assessment & Plan (07/14/2018 4:54 PM HOT WIRE GLASS TUBE CUTTER): Moderate disease activity, cdai = 22 On [...] month Assessment & Plan (06/03/2018 5:42 PM HOT WIRE GLASS TUBE CUTTER): High disease activity on Humira monotherapy. Tried [...] month Assessment & Plan (05/21/2017 4:03 PM HOT WIRE GLASS TUBE CUTTER): Patient disease activity is high. Patient defers [...] imuran. Assessment & Plan (04/20/2017 8:55 AM HOT WIRE GLASS TUBE CUTTER): Patient disease activity is moderate. Patient is [...] continue Humira. Will check routine labs today. 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 Assessment & Plan (04/20/2017 8:56 AM HOT WIRE GLASS TUBE CUTTER): Will continue to monitor the patient with routine labs. Assessment & Plan (01/12/2017 9:54 AM CDT): Will continue to monitor the patient with routine labs. Uveitis 01/12/2017 Assessment & Plan (03/16/2023 12:05 PM CDT): No flares in at least 5-6 yrs per pt's recollection. Was on Humira previously. Assessment & Plan (05/06/2021 12:56 PM HOT WIRE GLASS TUBE CUTTER): No recent flares. Sees eye doctor regularly Assessment & Plan (02/21/2019 10:26 AM CDT): No recent flares. Assessment & Plan (11/22/2018 9:51 AM CDT): No recent flares. Assessment & Plan (08/16/2018 12:24 PM CDT): No recent flares. Assessment & Plan (07/14/2018 4:56 PM HOT WIRE GLASS TUBE CUTTER): No recent flares. Assessment & Plan (06/03/2018 5:45 PM HOT WIRE GLASS TUBE CUTTER): Under control on humira. Sees eye doctor Assessment & Plan (10/04/2017 11:44 AM CDT): Under control on humira Assessment & Plan (08/20/2017 4:54 PM CDT): Under control on humira Assessment & Plan (05/21/2017 4:04 PM HOT WIRE GLASS TUBE CUTTER): On Humira. Continues to have flares. Would consider switching to remicade but patient unable to be take MTX due to elevated LFTS. Can consider simponi. Assessment & Plan (04/20/2017 8:57 AM HOT WIRE GLASS TUBE CUTTER): Had a flare recently but relates this [...] on file Legal Sex Female 2:57 AM HOT WIRE GLASS TUBE CUTTER Gender Identity Not on file Sexual Orientation Not on file Obstetrics History Last Filed Vital Signs Vital Sign Reading Time Taken Comments Blood Pressure 118/82 03/16/2023 10:34 AM CDT Pulse 71 03/16/2023 10:34 AM CDT Temperature 36.5 C (97.7 F) 06/09/2021 9:27 AM HOT WIRE GLASS TUBE CUTTER Respiratory Rate 16 06/09/2021 9:27 AM HOT WIRE GLASS TUBE CUTTER Oxygen Saturation 99% 03/16/2023 10:34 AM CDT Inhaled Oxygen Concentration - - Weight 92.5 kg (204 lb) 03/16/2023 10:34 AM CDT Height 157.5 cm (5' 2) 02/21/2019 9:59 AM CDT Body Mass Index 37.31 02/21/2019 9:59 AM CDT Plan of Treatment Health Maintenance Due Date Last Done Comments Breast Cancer Screening-Mammogram 1978 Cervical Cancer Screening 1978 Colon Cancer Screening-Colonoscopy 1978 Depression Screening 1978 Hepatitis B Screening 1996 Regular Well Visit/Exam 18-64 1996 DTaP/Tdap/Td Vaccine (2 - Td or Tdap) 06/07/2019 06/07/2009 Influenza Vaccine (#1) 2025 0, 03/08/2018, 03/02/2017, Additional history exists Hepatitis [...] a test for HCV RNA (test code 86654) is suggested. For additional information please refer to http://education.[employer]/faq/ILP68s1 (This link is being provided for informational/ educational purposes only.) Blood specimen (specimen) 07/26/2018 7:40 AM CDT 07/28/2018 5:29 AM CDT Narrative Resulting Agency Comment Performing Organization Information: Site ID: [place] Name: [facility] Address: [address] [address] Director: Abdullahi Schneider D.O., MPH Michelle SANCHEZ LAB MICROBIOLOGY - GENER AL ORDERABLES Final Result [facility] from Last 3 Months or Most Recently Relevant to Health Maintenance Insurance [facility] Care Teams Tea And Spice Supervisor Relationship Specialty Start Date End Date Hebert Worrell DO PCP - General 08/14/16 Asa Vasquez III, MD [address] [place] [address] Rheumatology 04/20/17 Rd Thomas MD [address] [place] [address] Referring Physician Gastroenterology 08/30/17 Daren Astorga Jr., DPM [address] [place] [address] Consulting Physician Podiatry 11/22/18
--- OUTSIDE RECORDS SUMMARY | 2025-01-24 01:47 | XMS_ITS | Encounter Summary ---
Author Organization [facility] Address 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
--- OUTSIDE RECORDS SUMMARY | 2025-01-24 01:47 | XMS_ITS | Clinical Summary ---
Author Organization [facility] Address [address] [place] [address] Phone Care Team Providers Care Human Factors Specialist Name Role Phone AlistairrissaHebertian Primary Care Provider Allergies No known active [...] on file Legal Sex Female 3:01 AM PLACEMENT INTERVIEWER Gender Identity Not on file Sexual Orientation [...] A M CDT Height 157.5 cm (5' 2) 09/23/2020 2:59 PM CDT Body Mass Index 39.36 09/23/2020 2:59 PM CDT Plan of Treatment Health Maintenance Due Date Last Done Comments HEPATITIS B VACCINES (1 of 3 - 19+ 3-dose series) 1997 HPV/Cotest (21-29) 1999 HPV/Cotest (30-65) 2008 CERVICAL CANCER SCREENING 06/17/2014 PAP SMEAR 06/17/2014 06/17/2011 BREAST CANCER SCREENING 2018 DTAP/TDAP/TD VACCINES (2 - T d or Tdap) 06/07/2019 06/07/2009 COLORECTAL SCREENING 2023 Colorectal Cancer Screening 2023 FIT-DNA Q 3 years 2023 FIT/FOBT Q 1 year 2023 Flex Sig/CT Colonography Q 5 years 2023 INFLUENZA VACCINE (#1) 2024 0, 02/15/2012, 01/30/2009 HPV VACCINES Aged Out No longer eligi ble based on patient's age to complete this topic Medical Devices Implanted Type Area Svp Research And Strategic Analysis Device Identifier Shelf Expiration Date Model / Serial / Lot Seamguard Endogia 60 Blk [id number] - [id number] Implanted:Qty : 2 on 09/23/2020 by Lalo Huerta MD at [facility] Biological N/A: Stomach [employer] 04/03/2023 [id number] / / [id number] Seamguard Endogia 60 Prpl [id number] - [id number] Implanted:Qty : 2 on 09/23/2020 by Lalo Huerta MD at [facility] Biological N/A: Stomach [employer] 10/16/2022 [id number] / / [id number] Description:implant #2- LOT# [id number] EXP. 03/18/23 Insurance [facility] FEDERAL RX [facility] [employer] Advance Directives For more information, please contact: [phone] * Full Code (Latest Code Status on File) Date Activated Date Inactivated Comments 09/23/2020 9:27 AM 09/24/2020 3:53 PM * Full Code Date Activated Date Inactivated Comments 06/04/2009 9:06 PM 06/08/2009 1:00 PM * Full Code Date Activated Date Inactivated Comments 06/03/2009 3:33 PM 06/04/2009 9:06 PM * Full Code Date Activated Date Inactivated Comments 02/17/2009 12:05 PM 02/17/2009 7:34 PM Care Teams Human Factors Specialist Relationship Specialty Start Date End Date Hebert Worrell DO [address] [address] PCP - General Internal Medicine 05/08/19
--- OUTSIDE RECORDS SUMMARY | 2025-01-24 01:47 | XMS_ITS | Encounter Summary ---
Author Organization [facility] Address [address] [place] [address] Care Team Providers Care Judo Teacher Name Role Phone Hebert Worrell DO Primary Care Provider Encounter Details Date Type Department Care Team (Latest Contact Info) Description 10/09/2004 Outpatient Historical HIS [facility] LAN Jeff, Malia Pineda MD NO ADDRESS ON FILE LUMP OR MASS IN BREAST (Primary Dx) Social History Tobacco Use Types Packs/Day Years Used Date Smoking Tobacco: Never Assessed Comments Unknown Sex and Gender Information Value Date Recorded Sex Assigned at Not on file Legal Sex Female 3:01 AM DOCUMENT REVIEW SPECIALIST Gender Identity Not on file Sexual Orientation Not on file documented as of this encounter Plan of Treatment Not on file documented as of this encounter Visit Diagnoses Diagnosis Lump or mass in breast- Primary documented in this encounter Care Teams Judo Teacher Relationship Specialty Start Date End Date Hebert Worrell DO [address] [facility] [address] [place] [id number] PCP - General Internal Medicine 05/08/19 documented as of this encounter
--- OUTSIDE RECORDS SUMMARY | 2025-01-24 01:47 | XMS_ITS | Encounter Summary ---
Author Organization [facility] Address [address] [place] [address] Care Team Providers Care Emergency Department Technician Name Role Phone Hebert Worrell DO Primary [...] on file Legal Sex Female 3:01 AM ASSEMBLER CARDS AND ANNOUNCEMENTS Gender Identity Not on file Sexual Orientation Not on file documented as of this encounter Plan of Treatment Not on file documented as of this encounter Visit Diagnoses Diagnosis Abnormality in heart rate/rhythm, delivered, with or without mention of antepartum condition- Primary documented in this encounter Care Teams Emergency Department Technician Relationship Specialty Start Date End Date Hebert Worrell DO [address] [phone] PCP - General Internal Medicine 05/08/19 documented as of this encounter
--- OUTSIDE RECORDS SUMMARY | 2025-01-24 01:47 | XMS_ITS | Encounter Summary ---
Author Organization [facility] Address [address] [place] [address] Care Team Providers Care Shipping Assistant Name Role Phone Hebert Worrell DO Primary [...] on file Legal Sex Female 3:01 AM SCREW MACHINE OPERATOR Gender Identity Not on file Sexual Orientation Not on file documented as of this encounter Plan of Treatment Not on file documented as of this encounter Visit Diagnoses Diagnosis Other threatened labor, antepartum- Primary documented in this encounter Care Teams Shipping Assistant Relationship Specialty Start Date End Date Hebert Worrell DO [address] [facility] [address] [place] [address] PCP - General Internal Medicine 05/08/19 documented as of this encounter
[2025-01-24 06:18] VITALS: BP 118/71; PULSE 66; RESP 14; TEMP 36.9; O2SAT 100; BMI 29.0
[2025-01-24] MEDS: LACTATED RINGERS 1,000 ML 150 ML IV CONT (06:27)
--- NOTE | 2025-01-24 07:01 | P.PNAN_ITS ---
Anes - Initial Pre Proc Eval Procedure: Operation Date: 01/24/25 07:30 Proposed Procedures p Screening Colonoscopy - Jacob Wan MD Date/Time: 01/24/25 07:01 Surgeon: Jacob Wan MD Pre Op Diagnosis: Screening Patient Data Age: 44 Gender: F Height: 1.57 m Weight: 72 kg Last Vital Signs Temp 36.9 C 01/24/25 06:18 Pulse 66 01/24/25 06:18 Resp 14 01/24/25 06:18 BP 118/71 01/24/25 06:18 Pulse Ox 100 01/24/25 06:18 O2 Del Method Room Air 01/24/25 06:18 Allergies Allergy/AdvReac Type Severity Reaction Status Date / Time azithromycin AdvReac Intermediate Vomiting Verified 10/18/24 11:16 Home Medications ?Medication ?Instructions ?Recorded ?Confirmed ?Type cholecalciferol (vitamin D3) 1,250 1,250 mcg PO WEEKLY #8 tabs 09/04/24 01/24/25 Rx mcg (50,000 unit) tablet sumatriptan succinate 50 mg tablet See Rx Instructions .Route 09/29/24 10/18/24 Rx .COMPLEX #9 tabs desvenlafaxine succinate 25 mg See Rx Instructions .Ro [place] 12/06/24 01/24/25 Rx tablet,extended release 24 hr .COMPLEX #270 tabs semaglutide (weight loss) 2.4 2.4 mg (0.75 mL) subcut WEEKLY #3 12/06/24 01/24/25 Rx mg/0.75 mL subcutaneous pen mL injector (Britton) Patient hx anesthesia problems: none Family hx anesthesia problems: none Results Review: All pre-operative results and documents have been reviewed as part of the pre- operative evaluation. [facility] Past Medical History Medical History (Updated 07/12/24 @ 19:29 by Nicolasa Moran, HECTOR-C) Obesity Obesity (BMI 35.0-39.9 without comorbidity) Rheumatoid arthritis of unspecified site with involvement of other organs and systems Right foot pain Screening for breast cancer Abnormal mammogram Hyperglycemia Transaminitis Pre-op evaluation Anxiety Rheumatoid arthritis Hypercholesterolemia Surgical History Surgical History History of weight loss surgery (~09/23/20) Gastric sleeve History of ankle surgery History of elbow surgery Delivery by section Family History Family History Father Family history of chronic obstructive pulmonary disease Mother Family history of malignant neoplasm of breast in first degree relative, Onset Age: 48 Son , in sleep 1 week after 6th birthday, cause unknown. No problems noted. Other Diabetes mellitus Family history of thyroid disease Social History Social History Social History: caffeine 1 coffee daily Smoking status: Never smoker Alcohol intake: never Substance use: never Substance use type: does not use Lack of Transportation: No Lack of Food: Never True Current Housing: I Have Housing Concerned About Future Housing: No Difficulty Paying Gas/Electric Bills: No Difficulty Paying for Meds: No Currently Unemployed: No Education: Bachelor's Degree Difficulty w/ Childcare or Family Care: No Living arrangements: with family Spiritual care concerns: No Anes - Eval Final PreProcedure Day of Procedure 01/24/25 07:01 Patient weight: overweight Heart: regular rate and rhythm Lungs: clear to auscultation Airway: Mallampati scale class II Neurological: alert and oriented Last oral intake: >/= 8 hours ASA classification: II Emergent: no Anesthetic plan: proceed Anesthesia type and monitoring: general GIVS and standard monitoring Results Review: All pre-operative results and documents have been reviewed as part of the pre- operative evaluation. Informed Consent: The patient's anesthetic plan and its attendant risks and benefits were discussed with the patient/family/POA. Questions were solicited and answers provided to the satisfaction of the patient/family/POA.
--- NOTE | 2025-01-24 07:28 | P.HP_ITS ---
H&P: HPI History of Present Illness Date/Time: 01/24/25 07:28 Chief Complaint: Screening colonoscopy Narrative: This is the patient's first colonoscopy. There are no GI symptoms and there is no family history of colorectal cancer. Review of Systems Review of Systems: All systems reviewed & are unremarkable except as noted in HPI and below PMFSH Past Medical History Medical History (Updated 07/12/24 @ 19:29 by ANDERSON SwanC) Obesity Obesity (BMI 35.0-39.9 without comorbidity) Rheumatoid arthritis of unspecified site with involvement of other organs and systems Right foot pain Screening for breast cancer Abnormal mammogram Hyperglycemia Transaminitis Pre-op evaluation Anxiety Rheumatoid arthritis Hypercholesterolemia Surgical History Surgical History History of weight loss surgery (~09/23/20) Gastric sleeve History of ankle surgery History of elbow surgery Delivery by section Family History Family History Father Family history of chronic obstructive pulmonary disease Mother Family history of malignant neoplasm of breast in first degree relative, Onset Age: 48 Son , in sleep 1 week after 6th birthday, cause unknown. No problems noted. Other Diabetes mellitus Family history of thyroid disease Social History Social History Social History: caffeine 1 coffee daily Smoking status: Never smoker Alcohol intake: never Substance use: never Substance use type: does not use Lack of Transportation: No Lack of Food: Never True Current Housing: I Have Housing Concerned About Future Housing: No Difficulty Paying Gas/Electric Bills: No Difficulty Paying for Meds: No Currently Unemployed: No Education: Bachelor's Degree Difficulty w/ Childcare or Family Care: No Living arrangements: with family Spiritual care concerns: No Meds Home Medications and Allergies Home Medications ?Medication ?Instructions ?Recorded ?Confirmed ?Type cholecalciferol (vitamin D3) 1,250 1,250 mcg PO WEEKLY #8 tabs 09/04/24 01/24/25 Rx mcg (50,000 unit) tablet sumatriptan succinate 50 mg tablet See Rx Instructions .Route 09/29/24 10/18/24 Rx .COMPLEX #9 tabs desvenlafaxine succinate 25 mg See Rx Instructions .Ro [place] 12/06/24 01/24/25 Rx tablet,extended release 24 hr .COMPLEX #270 tabs semaglutide (weight loss) 2.4 2.4 mg (0.75 mL) subcut WEEKLY #3 12/06/24 01/24/25 Rx mg/0.75 mL subcutaneous pen mL injector (WegovMafengwo) Allergies Allergy/AdvReac Type Severity Reaction Status Date / Time azithromycin AdvReac Intermediate Vomiting Verified 10/18/24 11:16 Vital Signs Vital Signs - 24 hr 01/24/25 06:18 Temperature 98.4 F Pulse Rate 66 Respiratory Rate 14 Blood Pressure 118/71 Pulse Oximetry 100 Oxygen Delivery Room Air Exam Const: General: cooperative and healthy appearing Resp: Effort & Inspection: normal respiratory effort and able to speak in complete sentences Auscultation: clear to auscultation bilaterally Cardio: Rate: regular rate Rhythm: regular rhythm GI: Inspection: normal to inspection GI Palp: No No hepatosplenomegaly present Auscultation: normal bowel sounds Rectal Exam: deferred Skin: General skin exam: normal color Psych: Appearance: grossly normal Mental Status: mental status grossly normal Assessment and Plan Assessment and plan (1) Screening for colon cancer: Code(s): Z12.11 - Encounter for screening for malignant neoplasm of colon Status: Acute Assessment and Plan: The patient is deemed a good candidate for the procedure. Consent signed. Will proceed.
[2025-01-24 07:44] VITALS: BP 98/57; PULSE 68; RESP 15; O2SAT 100
[2025-01-24 07:47] LABS: BEDSIDEPREGUCG Negative (Negative)
[2025-01-24 07:54] VITALS: BP 111/66; PULSE 57; RESP 15; O2SAT 100
[2025-01-24 08:04] VITALS: BP 114/68; PULSE 64; RESP 18; O2SAT 100
== END 2025-01-24 08:20 | disposition home or self-care (01) ==
PROVIDERS: PCP Internal Medicine; Referring Provider Clinical Nurse Specialist; Visit Provider Internal Medicine Gastroenterology
PROC: 0DJD8ZZ Inspection of Lower Intestinal Tract, Via Natural or Artificial Opening Endoscopic (ICD-10-PCS; CPT 45378; principal; 2025-01-24 07:30)
DX: Z12.11 Encounter for screening for malignant neoplasm of colon (principal)
CPT/HCPCS: 45378; J2704; J7120

== ENCOUNTER 2025-04-02 15:02 | Outpatient (CLI) | payer BC, SELFPAY ==
--- NOTE | ~2025-04-02 | XR_ITS ---
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 Findings: No acute fracture or malalignment. No significant degenerative changes. Soft tissues unremarkable. Impression: No acute fracture or malalignment. Reviewed, dictated and finalized at location P. STORAGE ATTENDANT Impression: No acute fracture or malalignment.
--- NOTE | ~2025-04-02 | XR_ITS ---
EXAMINATION: XR shoulder RT min 2V, 04/02/2025 15:09 LADLE LINER HISTORY: Other specified arthritis, unspecified site COMPARISON: No comparisons available. Findings: No acute fracture or malalignment. No significant degenerative changes. Soft tissues unremarkable. Impression: No acute fracture or malalignment. Reviewed, dictated and finalized at location P. E LINER Impression: No acute fracture or malalignment.
--- NOTE | ~2025-04-02 | XR_ITS ---
EXAMINATION: XR hand LT 2V, 04/02/2025 15:09 RIVERINE ASSAULT CRAFT CREWMAN HISTORY: Other specified arthritis, unspecified site COMPARISON: No comparisons available. Findings: No acute fracture or malalignment. Moderate degenerative changes of the first metacarpal carpal joint, no erosions are identified Soft tissues unremarkable. Impression: No acute fracture or malalignment. Reviewed, dictated and finalized at location P. RINE ASSAULT CRAFT CREWMAN Impression: No acute fracture or malalignment.
--- NOTE | ~2025-04-02 | XR_ITS ---
EXAMINATION: XR elbow LT 2V, 04/02/2025 15:09 FOOD CLERK HISTORY: Other specified arthritis, unspecified site COMPARISON: No comparisons available. Findings: No acute fracture or malalignment. No significant degenerative changes. Soft tissues unremarkable. Impression: No acute fracture or malalignment. Reviewed, dictated and finalized at location P. CLERK Impression: No acute fracture or malalignment.
--- NOTE | ~2025-04-02 | XR_ITS ---
EXAMINATION: XR chest 2V, 04/02/2025 15:09 GRAND JURY DEPUTY SHERIFF HISTORY: Other specified arthritis, unspecified site COMPARISON: No comparisons available. Technique: 2 views obtained. Findings: The lungs are clear, no effusion. No pneumothorax. Heart is normal size. Mediastinal and hilar contours are within normal limits. Bony thorax no acute abnormality. Impression: No acute cardiopulmonary abnormality. Reviewed, dictated and finalized at location P. D JURY DEPUTY SHERIFF Impression: No acute cardiopulmonary abnormality.
== END 2025-04-02 15:03 | disposition home or self-care (01) ==
LOC: MICIMG 15:04
PROVIDERS: PCP Physician Assistant; Visit Provider Physician Assistant
DX: M13.80 Other specified arthritis, unspecified site (principal); Z79.899 Other long term (current) drug therapy
CPT/HCPCS: 71046; 73030; 73070; 73120